=== PATIENT | female | born 1995 | race Hispanic/Latino ===

== ENCOUNTER 2021-01-17 04:25 | Inpatient (IN) | payer OTHER, SELFPAY ==
[2021-01-17] MEDS ORDERED: Propofol 1,000 MG/100 ML VIAL IV ONE (04:35)
[2021-01-17] MEDS ORDERED: Fentanyl 100 MCG/2 ML VIAL ONE (04:49)
[2021-01-17 04:54] LABS: Hemoglobin 11.3 g/dL (12.0-16.0); Mean Corpuscular Hemoglobin 30.2 pg (27.0-31.0); Mean Corpuscular Volume 88.9 fL (78.0-98.0); Mean Platelet Volume 8.6 fL (7.4-10.4); Platelet Count 219 thou/uL (130-400); RBC Distribution Width 12.7 % (11.5-14.5); Red Blood Cell (RBC) Count 3.75 mill/uL (4.20-5.40); White Blood Cell (WBC) Count 23.1 thou/uL (4.8-10.8)
[2021-01-17] MEDS ORDERED: Fentanyl CADD 100 ML IV SCH (05:00)
[2021-01-17 05:06] LABS: Band 1 % (5-11); Hypochromia SLIGHT = 6-15 cells (100X) (0-5/hpf); Lymphocytes 25 % (21-51); MDiff Complete? YES; Neutrophil 74 % (42-75); Platelet Morphology Comment Appears Adequate
[2021-01-17 05:09] LABS: ALT (SGPT) 11 U/L (8-55); AST (SGOT) 19 U/L (5-34); Albumin 3.7 g/dL (3.5-5.0); Alkaline Phosphatase 71 U/L (40-110); Anion Gap 14 mmol/L (10-20); BUN (Urea Nitrogen) 14 mg/dL (7.0-18.7); Bilirubin, Total 0.3 mg/dL (0.2-1.2); Calc. Creatinine Clearance 0 mL/min (70-130); Calcium 8.3 mg/dL (7.8-10.44); Carbon Dioxide 19 mmol/L (22-29); Chloride 107 mmol/L (98-107); Globulin 3.2 g/dL (2.4-3.5); Glucose 241 mg/dL (70-105); Potassium 3.9 mmol/L (3.5-5.1); Protein, Total 6.9 g/dL (6.0-8.3); Sodium 136 mmol/L (136-145)
[2021-01-17 05:12] LABS: Actual Bicarbonate (HCO3a) 19.1 mEq/L (22-28); Base Excess (BEa) -5.1 mEq/L (-2.0 to +3.0); CO2 Tension 32.4 mmHg (35.0-45.0); O2 Tension (PaO2), arterial 338.8 mmHg (80.0-100.0); pH, Arterial 7.39 (7.35-7.45)
[2021-01-17 05:13] LABS: Analyzer IN Cardio ER; Calcium, Ionized (arterial) 1.07 mmol/L (1.12-1.30); Carboxyhemoglobin (COHb) 0.1 gm% (0.0-3.0); Hemoglobin (Hb) 10.2 g/dL (12.0-16.0); Potassium - ABG Lab 3.28 mmol/L (3.70-5.30); Puncture Site RRA
[2021-01-17 05:15] LABS: Acetaminophen Less than 6.0 mcg/mL (10.0-30.0); Alcohol Less than 10 mg/dL (Less than 10); Salicylate Less than 8.0 mg/dL (15.0-30.0)
[2021-01-17 05:20] LABS: BHCG - Serum Negative (NEGATIVE); Pregs Control Background? CLEAR/WHITE (CLR/WHITE); Pregs Control Bar Appear? YES (CONTROL BAR)
[2021-01-17] MEDS ORDERED: Dextrose 50% Abboject 50 ML SYRINGE SLOW IVP PRN (05:20)
[2021-01-17] MEDS ORDERED: Insulin Regular 300 UNITS/3 ML VIAL SC PRN (05:20)
[2021-01-17] MEDS ORDERED: Ondansetron PF 4 MG/2 ML Vial IVP PRN (05:20)
[2021-01-17] MEDS ORDERED: Dextrose 5% in Water 1,000 ML IV PRN (05:20)
[2021-01-17] MEDS ORDERED: hydrALAZINE 20 MG/ML VIAL SLOW IVP PRN (05:20)
[2021-01-17] MEDS ORDERED: Calcium Chloride 1 GM/10 ML Abboject SYRINGE IVP SCH ×2 (05:30→17:45)
[2021-01-17] MEDS ORDERED: Midazolam HCl 5 mg/ml Vial ONE (05:32)
[2021-01-17 05:38] LABS: Bilirubin Negative (Negative); Blood, Urine Negative (Negative); Clarity Clear (Clear); Glucose, Urine (Dipstick) Greater than 1000 mg/dL (Negative); Ketone, Urine 10 mg/dL (Negative); Leukocyte Negative Leu/uL (Negative); Nitrite Negative (Negative); Pregnancy Test - Urine (BHCG) Negative (Negative); Pregu Control Background? CLEAR/WHITE (CLR/WHITE); Pregu Control Bar Appear? YES (CONTROL BAR); Protein, Urine (Dipstick) Negative (Neg-Trace); Urobilinogen Normal mg/dL (Less than 2); pH, Urine 5.5 (5.0-9.0)
[2021-01-17 05:47] LABS: Lactic Acid 2.9 mmol/L (0.5-2.2)
[2021-01-17 06:04] LABS: Hemoglobin A1c 4.9 % (4.0-6.0)
[2021-01-17 06:07] LABS: INR-International Normal Ratio 1.1; Prothrombin Time 14.2 sec (12.0-14.7)
[2021-01-17 06:08] LABS: PTT 29.2 sec (22.9-36.1)
[2021-01-17] MEDS: Sodium Chloride 0.9% 1,000 ML IV SCH ×4 (07:00→20:12)
[2021-01-17] MEDS: Pantoprazole 40 MG VIAL IVP SCH (08:28)
[2021-01-17] MEDS ORDERED: manNITOL 20% 500 ML ONE (09:01)
[2021-01-17] MEDS ORDERED: manNITOL 20% 500 ML IVPB SCH (09:15)
[2021-01-17] MEDS ORDERED: Lorazepam 2 MG/ML VIAL ONE (09:36)
[2021-01-17] MEDS: Sodium Chloride 3% 500 ML IVPB SCH (09:44)
[2021-01-17] MEDS ORDERED: levETIRAcetam in NS 1,000 MG in Premix Bag 1 BAG IVPB SCH (09:45)
[2021-01-17] MEDS ORDERED: Lorazepam 2 MG/ML VIAL SLOW IVP SCH (09:45)
[2021-01-17] MEDS ORDERED: Iopamidol-370 76% 500 ML 1 ML ONE (10:04)
[2021-01-17 11:27] LABS: #Lymphocytes 1.7 thou/uL (1.20-3.40); #Monocytes 1.2 thou/uL (0.11-0.59); #Neutrophils 17.6 thou/uL (1.40-6.50); %Basophils 0.1 % (0.0-1.0); %Eosinophils 0.1 % (0.0-10.0); %Lymphocytes 8.4 % (21.0-51.0); %Monocytes 5.7 % (0.0-10.0); %Neutrophils 85.7 % (42.0-75.0); Hemoglobin 9.7 g/dL (12.0-16.0); Mean Corpuscular HGB CONC 32.4 g/dL (32.0-36.0); Mean Corpuscular Hemoglobin 28.7 pg (27.0-31.0); Mean Corpuscular Volume 88.6 fL (78.0-98.0); Mean Platelet Volume 8.8 fL (7.4-10.4); Platelet Count 200 thou/uL (130-400); RBC Distribution Width 12.5 % (11.5-14.5); Red Blood Cell (RBC) Count 3.39 mill/uL (4.20-5.40); White Blood Cell (WBC) Count 20.5 thou/uL (4.8-10.8)
[2021-01-17 11:47] LABS: Anion Gap 9 mmol/L (10-20); BUN (Urea Nitrogen) 7 mg/dL (7.0-18.7); Calc. Creatinine Clearance 144 mL/min (70-130); Calcium 9.2 mg/dL (7.8-10.44); Carbon Dioxide 21 mmol/L (22-29); Chloride 107 mmol/L (98-107); Glucose 92 mg/dL (70-105); Potassium 3.8 mmol/L (3.5-5.1); Sodium 133 mmol/L (136-145)
[2021-01-17] MEDS: Propofol 1,000 MG/100 ML VIAL IV PRN ×2 (13:05→20:13)
[2021-01-17] MEDS ORDERED: Fentanyl CADD 100 ML ONE ×2 (13:18→23:23)
[2021-01-17 13:23] LABS: Anion Gap 10 mmol/L (10-20); BUN (Urea Nitrogen) 6 mg/dL (7.0-18.7); Calc. Creatinine Clearance 151 mL/min (70-130); Calcium 8.9 mg/dL (7.8-10.44); Carbon Dioxide 19 mmol/L (22-29); Chloride 110 mmol/L (98-107); Glucose 94 mg/dL (70-105); Potassium 3.7 mmol/L (3.5-5.1); Sodium 135 mmol/L (136-145)
[2021-01-17] MEDS: Fentanyl CADD 100 ML IV PRN ×2 (13:28→23:30)
[2021-01-17] MEDS: CEFAZOLIN IVPB SCH ×2 (13:34→22:05)
[2021-01-17] MEDS: D5W 1 GM IVPB SCH ×2 (13:34→22:05)
[2021-01-17 13:39] LABS: SARS-CoV-2 NAA Rapid Test DETECTED (NotDetected)
[2021-01-17] MEDS ORDERED: CEFAZOLIN 1 GM VIAL SLOW IVP SCH (14:00)
[2021-01-17 15:13] LABS: Sodium 136 mmol/L (136-145)
[2021-01-17] MEDS: Mannitol 12.5 GM/50 ML IV SCH ×2 (15:43→21:39)
[2021-01-17] MEDS ORDERED: Sodium Chloride 0.9% 1,000 ML IV SCH (15:45)
[2021-01-17 18:33] LABS: Sodium 140 mmol/L (136-145)
[2021-01-17] MEDS: levETIRAcetam in NS 500 MG in Premix Bag 1 BAG IVPB SCH (20:13)
[2021-01-17 20:34] LABS: Sodium 140 mmol/L (136-145)
[2021-01-18] MEDS: Sodium Chloride 3% 500 ML IVPB SCH (01:38)
[2021-01-18 02:13] LABS: Glucose 92 mg/dL (70-105); Sodium 142 mmol/L (136-145)
[2021-01-18] MEDS: Mannitol 12.5 GM/50 ML IV SCH ×3 (03:17→17:58)
[2021-01-18] MEDS ORDERED: Midazolam HCl 2 mg/2 ml Vial SLOW IVP PRN (03:18)
[2021-01-18] MEDS ORDERED: Midazolam HCl 2 mg/2 ml Vial IVP PRN (03:31)
[2021-01-18] MEDS: Propofol 1,000 MG/100 ML VIAL IV PRN ×4 (04:50→22:01)
[2021-01-18 05:24] LABS: #Eosinphils 0.2 thou/uL (0.0-0.7); #Lymphocytes 2.1 thou/uL (1.20-3.40); #Monocytes 0.6 thou/uL (0.11-0.59); #Neutrophils 8.6 thou/uL (1.40-6.50); %Basophils 0.3 % (0.0-1.0); %Eosinophils 1.8 % (0.0-10.0); %Lymphocytes 17.8 % (21.0-51.0); %Monocytes 5.6 % (0.0-10.0); %Neutrophils 74.6 % (42.0-75.0); Hemoglobin 7.3 g/dL (12.0-16.0); Mean Corpuscular HGB CONC 33.3 g/dL (32.0-36.0); Mean Corpuscular Hemoglobin 29.4 pg (27.0-31.0); Mean Corpuscular Volume 88.4 fL (78.0-98.0); Mean Platelet Volume 8.9 fL (7.4-10.4); Platelet Count 151 thou/uL (130-400); RBC Distribution Width 12.8 % (11.5-14.5); White Blood Cell (WBC) Count 11.6 thou/uL (4.8-10.8)
[2021-01-18 05:45] LABS: Anion Gap 8 mmol/L (10-20); BUN (Urea Nitrogen) 5 mg/dL (7.0-18.7); Calc. Creatinine Clearance 172 mL/min (70-130); Calcium 8.1 mg/dL (7.8-10.44); Carbon Dioxide 19 mmol/L (22-29); Chloride 116 mmol/L (98-107); Glucose 96 mg/dL (70-105); Magnesium 1.6 mg/dL (1.6-2.6); Phosphorus 2.6 mg/dL (2.3-4.7); Sodium 140 mmol/L (136-145)
[2021-01-18 05:50] LABS: INR-International Normal Ratio 1.4
[2021-01-18 05:51] LABS: PTT 42.4 sec (22.9-36.1)
[2021-01-18] MEDS: CEFAZOLIN IVPB SCH ×3 (07:08→22:00)
[2021-01-18] MEDS: D5W 1 GM IVPB SCH ×3 (07:08→22:00)
[2021-01-18] MEDS ORDERED: Potassium Phosphate 30 MMOL in Sodium Chloride 0.9% 250 ML 250 ML IVPB SCH (07:45)
[2021-01-18] MEDS ORDERED: Magnesium Sulfate 3 GM in Sodium Chloride 0.9% 100 ML IV SCH (07:45)
[2021-01-18] MEDS: levETIRAcetam in NS 500 MG in Premix Bag 1 BAG IVPB SCH ×2 (08:46→20:12)
[2021-01-18] MEDS: Pantoprazole 40 MG VIAL IVP SCH (08:47)
[2021-01-18 09:08] LABS: #Eosinphils 0.3 thou/uL (0.0-0.7); #Lymphocytes 2.1 thou/uL (1.20-3.40); #Monocytes 0.6 thou/uL (0.11-0.59); #Neutrophils 8.6 thou/uL (1.40-6.50); %Basophils 0.2 % (0.0-1.0); %Eosinophils 2.6 % (0.0-10.0); %Lymphocytes 17.9 % (21.0-51.0); %Monocytes 5.3 % (0.0-10.0); Hemoglobin 7.5 g/dL (12.0-16.0); Mean Corpuscular HGB CONC 33.7 g/dL (32.0-36.0); Mean Corpuscular Volume 88.9 fL (78.0-98.0); Mean Platelet Volume 9.6 fL (7.4-10.4); Platelet Count 150 thou/uL (130-400); RBC Distribution Width 12.6 % (11.5-14.5); Red Blood Cell (RBC) Count 2.49 mill/uL (4.20-5.40); White Blood Cell (WBC) Count 11.6 thou/uL (4.8-10.8)
[2021-01-18] MEDS ORDERED: Fentanyl CADD 100 ML ONE ×2 (09:10→18:14)
[2021-01-18] MEDS: Fentanyl CADD 100 ML IV PRN ×2 (09:14→18:21)
[2021-01-18 09:20] LABS: Sodium 144 mmol/L (136-145)
[2021-01-18] MEDS ORDERED: Iopamidol-370 76% 500 ML 1 ML ONE (10:19)
[2021-01-18] MEDS ORDERED: Norepinephrine 8 MG/0.9% NS 250 ML ONE (11:14)
[2021-01-18] MEDS: Sodium Chloride 0.9% 1,000 ML IV SCH ×2 (11:50→22:00)
[2021-01-18] MEDS ORDERED: Mannitol 12.5 GM/50 ML SLOW IVP SCH (12:00)
[2021-01-18] MEDS ORDERED: Lorazepam 2 MG/ML VIAL SLOW IVP SCH (12:00)
[2021-01-18] MEDS ORDERED: Lorazepam 2 MG/ML VIAL SLOW IVP PRN (13:12)
[2021-01-18] MEDS: Acetaminophen 325 MG/10.15 ML UDCUP PO SCH ×2 (13:30→20:11)
[2021-01-18] MEDS ORDERED: Potassium Phosphate 30 MMOL in Sodium Chloride 0.9% 500 ML IVPB SCH ×2 (14:15→14:30)
[2021-01-18] MEDS ORDERED: Midazolam HCl 2 mg/2 ml Vial SLOW IVP STA (14:52)
[2021-01-18 15:34] LABS: Sodium 144 mmol/L (136-145)
[2021-01-18] MEDS: Midazolam HCl 2 mg/2 ml Vial SLOW IVP PRN ×2 (16:11→20:11)
[2021-01-18 17:28] LABS: Actual Bicarbonate (HCO3a) 17.8 mEq/L (22-28); Base Excess (BEa) -5.8 mEq/L (-2.0 to +3.0); Calcium, Ionized (arterial) 1.07 mmol/L (1.12-1.30); Carboxyhemoglobin (COHb) 0.3 gm% (0.0-3.0); Hemoglobin (Hb) 7.7 g/dL (12.0-16.0); O2 Tension (PaO2), arterial 215.4 mmHg (80.0-100.0); Potassium - ABG Lab 3.02 mmol/L (3.70-5.30); pH, Arterial 7.42 (7.35-7.45)
[2021-01-18 17:30] LABS: Puncture Site Arterial Line
[2021-01-18] MEDS: Potassium Phosphate 30 MMOL in Sodium Chloride 0.9% 500 ML IVPB SCH ×2 (17:40→22:36)
[2021-01-18] MEDS ORDERED: Calcium Chloride 1 GM/10 ML Abboject SYRINGE IVP SCH (18:00)
[2021-01-18 20:04] LABS: Actual Bicarbonate (HCO3a) 17.7 mEq/L (22-28); Base Excess (BEa) -6.9 mEq/L (-2.0 to +3.0); CO2 Tension 31.5 mmHg (35.0-45.0); Calcium, Ionized (arterial) 1.41 mmol/L (1.12-1.30); Carboxyhemoglobin (COHb) 0.3 gm% (0.0-3.0); Hemoglobin (Hb) 7.7 g/dL (12.0-16.0); O2 Tension (PaO2), arterial 176.1 mmHg (80.0-100.0); Potassium - ABG Lab 3.45 mmol/L (3.70-5.30); pH, Arterial 7.37 (7.35-7.45)
[2021-01-18 20:08] LABS: ALV-art Gradient 69.725 mmHg (0-20); Puncture Site LINE
[2021-01-18 22:09] LABS: Actual Bicarbonate (HCO3a) 18.7 mEq/L (22-28); Base Excess (BEa) -5.5 mEq/L (-2.0 to +3.0); CO2 Tension 30.8 mmHg (35.0-45.0); Calcium, Ionized (arterial) 1.29 mmol/L (1.12-1.30); Carboxyhemoglobin (COHb) 0.3 gm% (0.0-3.0); Hemoglobin (Hb) 7.5 g/dL (12.0-16.0); O2 Tension (PaO2), arterial 191.7 mmHg (80.0-100.0); Potassium - ABG Lab 3.52 mmol/L (3.70-5.30)
[2021-01-18 22:13] LABS: Puncture Site LINE
[2021-01-19] MEDS: Acetaminophen 325 MG/10.15 ML UDCUP PO SCH ×4 (01:18→19:39)
[2021-01-19] MEDS: Mannitol 12.5 GM/50 ML IV SCH ×5 (01:18→22:42)
[2021-01-19 03:58] LABS: Actual Bicarbonate (HCO3a) 19.4 mEq/L (22-28); Base Excess (BEa) -5.5 mEq/L (-2.0 to +3.0); CO2 Tension 35.4 mmHg (35.0-45.0); Calcium, Ionized (arterial) 1.22 mmol/L (1.12-1.30); Hemoglobin (Hb) 7.5 g/dL (12.0-16.0); O2 Tension (PaO2), arterial 172.4 mmHg (80.0-100.0); Potassium - ABG Lab 3.39 mmol/L (3.70-5.30); pH, Arterial 7.36 (7.35-7.45)
[2021-01-19 03:59] LABS: Puncture Site LINE
[2021-01-19] MEDS: Propofol 1,000 MG/100 ML VIAL IV PRN ×3 (04:06→19:35)
[2021-01-19 04:21] LABS: #Eosinphils 0.6 thou/uL (0.0-0.7); #Lymphocytes 1.5 thou/uL (1.20-3.40); #Monocytes 0.7 thou/uL (0.11-0.59); #Neutrophils 7.8 thou/uL (1.40-6.50); %Basophils 0.2 % (0.0-1.0); %Eosinophils 5.4 % (0.0-10.0); %Lymphocytes 14.1 % (21.0-51.0); %Monocytes 6.6 % (0.0-10.0); %Neutrophils 73.7 % (42.0-75.0); Hemoglobin 7.3 g/dL (12.0-16.0); Mean Corpuscular HGB CONC 34.1 g/dL (32.0-36.0); Mean Corpuscular Hemoglobin 30.5 pg (27.0-31.0); Mean Corpuscular Volume 89.5 fL (78.0-98.0); Mean Platelet Volume 8.5 fL (7.4-10.4); Platelet Count 122 thou/uL (130-400); RBC Distribution Width 12.6 % (11.5-14.5); Red Blood Cell (RBC) Count 2.38 mill/uL (4.20-5.40); White Blood Cell (WBC) Count 10.6 thou/uL (4.8-10.8)
[2021-01-19] MEDS ORDERED: Fentanyl CADD 100 ML ONE ×3 (04:59→22:45)
[2021-01-19] MEDS: Fentanyl CADD 100 ML IV PRN ×3 (05:02→22:49)
[2021-01-19 05:10] LABS: Anion Gap 8 mmol/L (10-20); BUN (Urea Nitrogen) 4 mg/dL (7.0-18.7); Calc. Creatinine Clearance 171 mL/min (70-130); Calcium 8.2 mg/dL (7.8-10.44); Carbon Dioxide 20 mmol/L (22-29); Chloride 119 mmol/L (98-107); Glucose 97 mg/dL (70-105); Magnesium 1.7 mg/dL (1.6-2.6); Phosphorus 4.2 mg/dL (2.3-4.7); Potassium 3.4 mmol/L (3.5-5.1); Sodium 144 mmol/L (136-145)
[2021-01-19] MEDS: Midazolam HCl 2 mg/2 ml Vial SLOW IVP PRN ×4 (05:33→22:26)
[2021-01-19] MEDS: D5W 1 GM IVPB SCH ×3 (06:22→22:26)
[2021-01-19] MEDS: CEFAZOLIN IVPB SCH ×3 (06:22→22:26)
[2021-01-19] MEDS: levETIRAcetam in NS 500 MG in Premix Bag 1 BAG IVPB SCH ×2 (07:50→20:47)
[2021-01-19] MEDS: Pantoprazole 40 MG VIAL IVP SCH (07:50)
[2021-01-19] MEDS: Sodium Chloride 0.9% 1,000 ML IV SCH ×2 (07:50→16:36)
[2021-01-19] MEDS ORDERED: Potassium Phosphate 30 MMOL in Sodium Chloride 0.9% 500 ML IVPB SCH (09:15)
[2021-01-19] MEDS ORDERED: Magnesium Sulfate 3 GM in Sodium Chloride 0.9% 100 ML IV SCH (09:15)
[2021-01-20] MEDS: Propofol 1,000 MG/100 ML VIAL IV PRN ×7 (00:01→23:43)
[2021-01-20] MEDS: Acetaminophen 325 MG/10.15 ML UDCUP PO SCH ×4 (00:57→20:35)
[2021-01-20] MEDS: Morphine 2 MG/ML VIAL SLOW IVP PRN ×3 (00:57→08:57)
[2021-01-20] MEDS: Midazolam HCl 2 mg/2 ml Vial SLOW IVP PRN ×5 (01:16→11:44)
[2021-01-20 02:28] LABS: Sodium 145 mmol/L (136-145)
[2021-01-20] MEDS: Sodium Chloride 0.9% 1,000 ML IV SCH ×2 (04:33→12:48)
[2021-01-20 04:46] LABS: #Eosinphils 0.8 thou/uL (0.0-0.7); #Monocytes 0.5 thou/uL (0.11-0.59); #Neutrophils 10.1 thou/uL (1.40-6.50); %Basophils 0.2 % (0.0-1.0); %Eosinophils 6.1 % (0.0-10.0); %Lymphocytes 8.2 % (21.0-51.0); %Monocytes 3.9 % (0.0-10.0); %Neutrophils 81.6 % (42.0-75.0); Hemoglobin 9.3 g/dL (12.0-16.0); Mean Corpuscular HGB CONC 33.2 g/dL (32.0-36.0); Mean Corpuscular Hemoglobin 29.8 pg (27.0-31.0); Mean Corpuscular Volume 89.6 fL (78.0-98.0); Mean Platelet Volume 9.1 fL (7.4-10.4); Platelet Count 154 thou/uL (130-400); RBC Distribution Width 12.6 % (11.5-14.5); Red Blood Cell (RBC) Count 3.12 mill/uL (4.20-5.40); White Blood Cell (WBC) Count 12.4 thou/uL (4.8-10.8)
[2021-01-20 05:10] LABS: Anion Gap 8 mmol/L (10-20); BUN (Urea Nitrogen) Less than 4 mg/dL (7.0-18.7); Calc. Creatinine Clearance 185 mL/min (70-130); Calcium 7.7 mg/dL (7.8-10.44); Carbon Dioxide 20 mmol/L (22-29); Chloride 120 mmol/L (98-107); Glucose 88 mg/dL (70-105); Magnesium 1.9 mg/dL (1.6-2.6); Phosphorus 3.7 mg/dL (2.3-4.7); Potassium 3.5 mmol/L (3.5-5.1); Sodium 144 mmol/L (136-145)
[2021-01-20] MEDS: D5W 1 GM IVPB SCH ×3 (05:10→21:18)
[2021-01-20] MEDS: CEFAZOLIN IVPB SCH ×3 (05:10→21:18)
[2021-01-20] MEDS: Mannitol 12.5 GM/50 ML IV SCH ×3 (05:10→16:57)
[2021-01-20] MEDS ORDERED: Mannitol 12.5 GM/50 ML IV SCH ×4 (06:00→19:15)
[2021-01-20] MEDS ORDERED: Magnesium 2 GM/50 ML 2 GM in Premix Bag 1 BAG IVPB SCH (07:15)
[2021-01-20] MEDS ORDERED: Fentanyl CADD 100 ML ONE ×3 (07:26→16:33)
[2021-01-20] MEDS: Fentanyl CADD 100 ML IV PRN ×2 (07:28→16:45)
[2021-01-20 07:54] LABS: Actual Bicarbonate (HCO3a) 17.6 mEq/L (22-28); Base Excess (BEa) -7.9 mEq/L (-2.0 to +3.0); CO2 Tension 35.5 mmHg (35.0-45.0); Calcium, Ionized (arterial) 1.12 mmol/L (1.12-1.30); Carboxyhemoglobin (COHb) 0.2 gm% (0.0-3.0); Hemoglobin (Hb) 8.6 g/dL (12.0-16.0); O2 Tension (PaO2), arterial 98.2 mmHg (80.0-100.0); pH, Arterial 7.31 (7.35-7.45)
[2021-01-20 07:56] LABS: ALV-art Gradient 142.625 mmHg (0-20); Puncture Site Arterial Line
[2021-01-20] MEDS: Pantoprazole 40 MG VIAL IVP SCH (08:10)
[2021-01-20] MEDS: levETIRAcetam in NS 500 MG in Premix Bag 1 BAG IVPB SCH ×2 (08:10→20:01)
[2021-01-20] MEDS: Lorazepam 2 MG/ML VIAL SLOW IVP PRN ×4 (08:10→18:29)
[2021-01-20] MEDS ORDERED: Albumin 25% 0 ML ONE (10:16)
[2021-01-20] MEDS: Metoclopramide HCl 10 MG/2 ML VIAL IVP SCH ×2 (12:03→16:56)
[2021-01-20] MEDS ORDERED: Vecuronium 10 MG VIAL ONE (13:24)
[2021-01-20] MEDS: Vecuronium Bromide 50 MG in Sodium Chloride 0.9% 250 ML 250 ML IV SCH (19:59)
[2021-01-20] MEDS: Norepinephrine 8 MG/0.9% NS 250 ML IVPB SCH (20:00)
[2021-01-21] MEDS: Fentanyl CADD 100 ML IV PRN ×3 (00:02→15:53)
[2021-01-21] MEDS: Metoclopramide HCl 10 MG/2 ML VIAL IVP SCH ×4 (00:06→18:05)
[2021-01-21] MEDS: Sodium Chloride 0.9% 1,000 ML IV SCH ×2 (00:51→04:39)
[2021-01-21] MEDS: Acetaminophen 325 MG/10.15 ML UDCUP PO SCH ×4 (01:14→20:39)
[2021-01-21] MEDS: Propofol 1,000 MG/100 ML VIAL IV PRN ×7 (03:01→23:22)
[2021-01-21] MEDS: D5W 1 GM IVPB SCH ×3 (05:01→21:45)
[2021-01-21] MEDS: CEFAZOLIN IVPB SCH ×3 (05:01→21:45)
[2021-01-21] MEDS: Mannitol 12.5 GM/50 ML IV SCH (05:40)
[2021-01-21 07:33] LABS: Actual Bicarbonate (HCO3a) 21.5 mEq/L (22-28); Base Excess (BEa) -5.4 mEq/L (-2.0 to +3.0); CO2 Tension 48.7 mmHg (35.0-45.0); Calcium, Ionized (arterial) 1.19 mmol/L (1.12-1.30); Carboxyhemoglobin (COHb) 0.3 gm% (0.0-3.0); Hemoglobin (Hb) 10.2 g/dL (12.0-16.0); O2 Tension (PaO2), arterial 76.7 mmHg (80.0-100.0); Potassium - ABG Lab 2.71 mmol/L (3.70-5.30); pH, Arterial 7.26 (7.35-7.45)
[2021-01-21 07:38] LABS: ALV-art Gradient 147.625 mmHg (0-20); Puncture Site Arterial Line
[2021-01-21] MEDS: Vecuronium Bromide 50 MG in Sodium Chloride 0.9% 250 ML 250 ML IV SCH ×2 (07:45→20:38)
[2021-01-21] MEDS: Pantoprazole 40 MG VIAL IVP SCH (07:49)
[2021-01-21] MEDS: levETIRAcetam in NS 500 MG in Premix Bag 1 BAG IVPB SCH ×2 (07:49→20:38)
[2021-01-21 08:06] LABS: #Eosinphils 0.9 thou/uL (0.0-0.7); #Lymphocytes 0.7 thou/uL (1.20-3.40); #Monocytes 0.5 thou/uL (0.11-0.59); #Neutrophils 9.3 thou/uL (1.40-6.50); %Basophils 0.2 % (0.0-1.0); %Eosinophils 8.1 % (0.0-10.0); %Lymphocytes 5.9 % (21.0-51.0); %Monocytes 4.6 % (0.0-10.0); %Neutrophils 81.2 % (42.0-75.0); Hemoglobin 10.1 g/dL (12.0-16.0); Mean Corpuscular HGB CONC 34.2 g/dL (32.0-36.0); Mean Corpuscular Hemoglobin 30.7 pg (27.0-31.0); Mean Corpuscular Volume 89.8 fL (78.0-98.0); Mean Platelet Volume 8.8 fL (7.4-10.4); Platelet Count 184 thou/uL (130-400); RBC Distribution Width 12.8 % (11.5-14.5); Red Blood Cell (RBC) Count 3.28 mill/uL (4.20-5.40); White Blood Cell (WBC) Count 11.5 thou/uL (4.8-10.8)
[2021-01-21] MEDS ORDERED: Fentanyl CADD 100 ML ONE ×4 (08:12→23:57)
[2021-01-21 08:34] LABS: Anion Gap 12 mmol/L (10-20); BUN (Urea Nitrogen) Less than 4 mg/dL (7.0-18.7); Calc. Creatinine Clearance 152 mL/min (70-130); Calcium 8.1 mg/dL (7.8-10.44); Carbon Dioxide 21 mmol/L (22-29); Chloride 122 mmol/L (98-107); Glucose 100 mg/dL (70-105); Magnesium 1.8 mg/dL (1.6-2.6); Phosphorus 3.3 mg/dL (2.3-4.7); Sodium 152 mmol/L (136-145)
[2021-01-21 08:39] LABS: Potassium 2.8 mmol/L (3.5-5.1)
[2021-01-21] MEDS ORDERED: SODIUM CHLORIDE 0.9% IVPB SCH (08:45)
[2021-01-21] MEDS ORDERED: POTASSIUM CHLORIDE IVPB SCH (08:45)
[2021-01-21] MEDS ORDERED: MAGNESIUM SULFATE IVPB SCH (08:45)
[2021-01-21] MEDS ORDERED: Calcium Chloride 1 GM/10 ML Abboject SYRINGE IVP SCH (10:15)
[2021-01-21] MEDS ORDERED: Morphine 4 MG/ML VIAL SLOW IVP PRN (14:30)
[2021-01-21] MEDS: Norepinephrine 8 MG/0.9% NS 250 ML IVPB SCH (20:39)
[2021-01-22] MEDS: Fentanyl CADD 100 ML IV PRN ×3 (00:01→23:14)
[2021-01-22] MEDS: Metoclopramide HCl 10 MG/2 ML VIAL IVP SCH ×5 (00:09→23:12)
[2021-01-22] MEDS: Acetaminophen 325 MG/10.15 ML UDCUP PO SCH ×4 (00:10→18:17)
[2021-01-22] MEDS: Propofol 1,000 MG/100 ML VIAL IV PRN ×4 (01:41→23:12)
[2021-01-22 02:02] LABS: Actual Bicarbonate (HCO3a) 20.7 mEq/L (22-28); Base Excess (BEa) -5.2 mEq/L (-2.0 to +3.0); CO2 Tension 42.1 mmHg (35.0-45.0); Carboxyhemoglobin (COHb) 0.3 gm% (0.0-3.0); Hemoglobin (Hb) 10.8 g/dL (12.0-16.0); O2 Tension (PaO2), arterial 77.8 mmHg (80.0-100.0); Potassium - ABG Lab 2.67 mmol/L (3.70-5.30); pH, Arterial 7.31 (7.35-7.45)
[2021-01-22 02:19] LABS: Puncture Site LINE
[2021-01-22 02:20] LABS: ALV-art Gradient 297.375 mmHg (0-20)
[2021-01-22 02:37] LABS: #Eosinphils 1.6 thou/uL (0.0-0.7); #Lymphocytes 1.4 thou/uL (1.20-3.40); #Monocytes 0.4 thou/uL (0.11-0.59); #Neutrophils 9.5 thou/uL (1.40-6.50); %Basophils 0.3 % (0.0-1.0); %Eosinophils 12.1 % (0.0-10.0); %Lymphocytes 11.2 % (21.0-51.0); %Monocytes 2.8 % (0.0-10.0); %Neutrophils 73.6 % (42.0-75.0); Hemoglobin 10.7 g/dL (12.0-16.0); Mean Corpuscular HGB CONC 32.5 g/dL (32.0-36.0); Mean Corpuscular Hemoglobin 29.8 pg (27.0-31.0); Mean Corpuscular Volume 91.7 fL (78.0-98.0); Platelet Count 221 thou/uL (130-400); RBC Distribution Width 13.2 % (11.5-14.5); White Blood Cell (WBC) Count 12.8 thou/uL (4.8-10.8)
[2021-01-22 03:00] LABS: Anion Gap 11 mmol/L (10-20); BUN (Urea Nitrogen) Less than 4 mg/dL (7.0-18.7); Calc. Creatinine Clearance 120 mL/min (70-130); Calcium 8.7 mg/dL (7.8-10.44); Carbon Dioxide 23 mmol/L (22-29); Chloride 123 mmol/L (98-107); Glucose 110 mg/dL (70-105); Magnesium 1.7 mg/dL (1.6-2.6); Phosphorus 3.4 mg/dL (2.3-4.7); Sodium 154 mmol/L (136-145)
[2021-01-22 03:08] LABS: Potassium 2.9 mmol/L (3.5-5.1)
[2021-01-22] MEDS ORDERED: POTASSIUM PHOSPHATE IVPB SCH (03:15)
[2021-01-22] MEDS ORDERED: SODIUM CHLORIDE 0.9% IVPB SCH (03:15)
[2021-01-22] MEDS ORDERED: Magnesium 2 GM/50 ML 2 GM in Premix Bag 1 BAG IVPB SCH (03:30)
[2021-01-22] MEDS ORDERED: Potassium Chloride 40 MEQ in Premix Bag 1 BAG IVPB SCH (03:45)
[2021-01-22] MEDS ORDERED: Hydrocortisone Sod Succ/PF 100 mg/2 ml Vial IVP SCH (06:00)
[2021-01-22] MEDS ORDERED: Potassium Phosphate 30 MMOL in Sodium Chloride 0.9% 250 ML 250 ML IVPB SCH (06:00)
[2021-01-22] MEDS ORDERED: Calcium Chloride 13.6 MEQ in Sodium Chloride 0.9% 100 ML IVPB SCH (06:30)
[2021-01-22] MEDS: CEFAZOLIN IVPB SCH ×4 (06:34→21:12)
[2021-01-22] MEDS: D5W 1 GM IVPB SCH ×4 (06:34→21:12)
[2021-01-22] MEDS ORDERED: Fentanyl CADD 100 ML ONE ×2 (07:48→23:09)
[2021-01-22 08:00] LABS: Actual Bicarbonate (HCO3a) 18.2 mEq/L (22-28); CO2 Tension 39.6 mmHg (35.0-45.0); Calcium, Ionized (arterial) 1.35 mmol/L (1.12-1.30); Carboxyhemoglobin (COHb) 0.3 gm% (0.0-3.0); Hemoglobin (Hb) 12.3 g/dL (12.0-16.0); O2 Tension (PaO2), arterial 92.5 mmHg (80.0-100.0); Potassium - ABG Lab 3.47 mmol/L (3.70-5.30); pH, Arterial 7.28 (7.35-7.45)
[2021-01-22] MEDS: levETIRAcetam in NS 500 MG in Premix Bag 1 BAG IVPB SCH ×2 (08:02→20:28)
[2021-01-22] MEDS: Pantoprazole 40 MG VIAL IVP SCH (08:02)
[2021-01-22 08:03] LABS: Puncture Site Arterial Line
[2021-01-22] MEDS ORDERED: Dextrose 5% in Water 1,000 ML IV SCH (08:45)
[2021-01-22] MEDS: Vecuronium Bromide 50 MG in Sodium Chloride 0.9% 250 ML 250 ML IV SCH (09:12)
[2021-01-22] MEDS: Norepinephrine 8 MG/0.9% NS 250 ML IVPB SCH ×2 (09:13→22:53)
[2021-01-22 11:48] LABS: Actual Bicarbonate (HCO3a) 18.7 mEq/L (22-28); CO2 Tension 48.2 mmHg (35.0-45.0); Calcium, Ionized (arterial) 1.25 mmol/L (1.12-1.30); Carboxyhemoglobin (COHb) 0.3 gm% (0.0-3.0); Hemoglobin (Hb) 10.9 g/dL (12.0-16.0); O2 Tension (PaO2), arterial 104.7 mmHg (80.0-100.0); Potassium - ABG Lab 4.03 mmol/L (3.70-5.30)
[2021-01-22] MEDS: Hydrocortisone Sod Succ/PF 100 mg/2 ml Vial IVP SCH ×3 (11:48→23:12)
[2021-01-22 11:53] LABS: Puncture Site Arterial Line; pH, Arterial 7.21 (7.35-7.45)
[2021-01-22 13:16] LABS: Sodium 155 mmol/L (136-145)
[2021-01-22] MEDS: Mannitol 12.5 GM/50 ML IV SCH ×3 (13:57→23:41)
[2021-01-22] MEDS ORDERED: Albuterol 200 PUFF (6.7GM INHALER) INH PRN (14:45)
[2021-01-22] MEDS: Midazolam In 0.9 % NaCl/PF 100 ML IVPB SCH (17:22)
[2021-01-22 17:31] LABS: CO2 Tension 34.2 mmHg (35.0-45.0); Calcium, Ionized (arterial) 1.15 mmol/L (1.12-1.30); Carboxyhemoglobin (COHb) 0.3 gm% (0.0-3.0); O2 Tension (PaO2), arterial 137.1 mmHg (80.0-100.0); Potassium - ABG Lab 3.73 mmol/L (3.70-5.30); pH, Arterial 7.34 (7.35-7.45)
[2021-01-22 17:36] LABS: Puncture Site Arterial Line
[2021-01-22] MEDS: Albuterol 200 PUFF (6.7GM INHALER) INH SCH ×2 (18:12→23:30)
[2021-01-22 18:19] LABS: Sodium 150 mmol/L (136-145)
[2021-01-22] MEDS ORDERED: Sodium Chloride 0.9% 500 ML IV SCH (19:30)
[2021-01-22 21:12] LABS: Hemoglobin 10.5 g/dL (12.0-16.0); Mean Corpuscular HGB CONC 33.1 g/dL (32.0-36.0); Mean Corpuscular Hemoglobin 29.6 pg (27.0-31.0); Mean Corpuscular Volume 89.5 fL (78.0-98.0); Mean Platelet Volume 8.5 fL (7.4-10.4); Platelet Count 253 thou/uL (130-400); RBC Distribution Width 13.2 % (11.5-14.5); Red Blood Cell (RBC) Count 3.54 mill/uL (4.20-5.40); White Blood Cell (WBC) Count 16.9 thou/uL (4.8-10.8)
[2021-01-22 21:14] LABS: Sodium 153 mmol/L (136-145)
[2021-01-22 21:29] LABS: Band 40 % (5-11); Hypochromia SLIGHT = 6-15 cells (100X) (0-5/hpf); Lymphocytes 8 % (21-51); MDiff Complete? YES; Monocytes 5 % (0-10); Neutrophil 47 % (42-75); Platelet Morphology Comment Appears Adequate
[2021-01-22 21:30] LABS: Calcium 7.9 mg/dL (7.8-10.44); Chloride 122 mmol/L (98-107); Potassium 3.6 mmol/L (3.5-5.1); Sodium 153 mmol/L (136-145)
[2021-01-22 21:31] LABS: Glucose 143 mg/dL (70-105)
[2021-01-22 21:32] LABS: Anion Gap 12 mmol/L (10-20); Carbon Dioxide 23 mmol/L (22-29)
[2021-01-22 21:34] LABS: Calc. Creatinine Clearance 130 mL/min (70-130)
[2021-01-22 21:35] LABS: BUN (Urea Nitrogen) 7 mg/dL (7.0-18.7)
[2021-01-22 21:58] LABS: Phosphorus 6.5 mg/dL (2.3-4.7)
[2021-01-22] MEDS ORDERED: Potassium Chloride 20 MEQ in Premix Bag 1 BAG IVPB SCH (23:15)
[2021-01-23] MEDS: Acetaminophen 325 MG/10.15 ML UDCUP PO SCH (00:01)
[2021-01-23] MEDS: Vecuronium Bromide 50 MG in Sodium Chloride 0.9% 250 ML 250 ML IV SCH (03:29)
[2021-01-23] MEDS: Propofol 1,000 MG/100 ML VIAL IV PRN ×3 (03:46→21:11)
[2021-01-23 04:40] LABS: ALT (SGPT) 503 U/L (8-55); AST (SGOT) 560 U/L (5-34); Alkaline Phosphatase 119 U/L (40-110); Anion Gap 11 mmol/L (10-20); BUN (Urea Nitrogen) 11 mg/dL (7.0-18.7); Bilirubin, Total 0.8 mg/dL (0.2-1.2); Calc. Creatinine Clearance 134 mL/min (70-130); Calcium 7.4 mg/dL (7.8-10.44); Carbon Dioxide 23 mmol/L (22-29); Chloride 119 mmol/L (98-107); Globulin 2.4 g/dL (2.4-3.5); Glucose 145 mg/dL (70-105); Protein, Total 5.4 g/dL (6.0-8.3); Sodium 149 mmol/L (136-145)
[2021-01-23 04:44] LABS: Band 37 % (5-11); Hemoglobin 9.6 g/dL (12.0-16.0); Hypochromia SLIGHT = 6-15 cells (100X) (0-5/hpf); Lymphocytes 3 % (21-51); MDiff Complete? YES; Mean Corpuscular HGB CONC 32.9 g/dL (32.0-36.0); Mean Corpuscular Hemoglobin 29.7 pg (27.0-31.0); Mean Corpuscular Volume 90.3 fL (78.0-98.0); Mean Platelet Volume 8.7 fL (7.4-10.4); Monocytes 4 % (0-10); Neutrophil 56 % (42-75); Platelet Count 251 thou/uL (130-400); Platelet Morphology Comment Appears Adequate; RBC Distribution Width 13.2 % (11.5-14.5); Red Blood Cell (RBC) Count 3.24 mill/uL (4.20-5.40); White Blood Cell (WBC) Count 15.2 thou/uL (4.8-10.8)
[2021-01-23] MEDS: CEFAZOLIN IVPB SCH (05:57)
[2021-01-23] MEDS: D5W 1 GM IVPB SCH (05:57)
[2021-01-23] MEDS: Midazolam In 0.9 % NaCl/PF 100 ML IVPB SCH ×2 (05:57→18:39)
[2021-01-23] MEDS: Hydrocortisone Sod Succ/PF 100 mg/2 ml Vial IVP SCH ×3 (05:58→17:42)
[2021-01-23] MEDS: Metoclopramide HCl 10 MG/2 ML VIAL IVP SCH ×3 (05:58→17:42)
[2021-01-23] MEDS ORDERED: Acetaminophen 650 MG/20.3 ML UDCUP PO SCH (06:00)
[2021-01-23 07:25] LABS: Actual Bicarbonate (HCO3a) 20.5 mEq/L (22-28); Base Excess (BEa) -3.7 mEq/L (-2.0 to +3.0); CO2 Tension 33.9 mmHg (35.0-45.0); Calcium, Ionized (arterial) 1.04 mmol/L (1.12-1.30); Carboxyhemoglobin (COHb) 0.3 gm% (0.0-3.0); Hemoglobin (Hb) 10.1 g/dL (12.0-16.0); O2 Tension (PaO2), arterial 86.3 mmHg (80.0-100.0); Potassium - ABG Lab 3.55 mmol/L (3.70-5.30)
[2021-01-23] MEDS: levETIRAcetam in NS 500 MG in Premix Bag 1 BAG IVPB SCH ×2 (07:51→21:11)
[2021-01-23] MEDS: Pantoprazole 40 MG VIAL IVP SCH (07:52)
[2021-01-23] MEDS: Albuterol 200 PUFF (6.7GM INHALER) INH SCH ×3 (08:09→18:15)
[2021-01-23 08:11] LABS: ALV-art Gradient 227.825 mmHg (0-20); Puncture Site Arterial Line
[2021-01-23] MEDS: Mannitol 12.5 GM/50 ML IV SCH ×3 (09:33→19:23)
[2021-01-23] MEDS ORDERED: Calcium Chloride 1 GM/10 ML Abboject SYRINGE ONE (09:46)
[2021-01-23] MEDS: cefTRIAXone\\ROCEPHIN 2 GM in Sodium Chloride 0.9% 100 ML IVPB SCH (14:08)
[2021-01-23] MEDS: Lactated Ringer's 1,000 ML IV SCH (17:42)
[2021-01-23] MEDS ORDERED: Fentanyl CADD 100 ML ONE (18:37)
[2021-01-23] MEDS: Fentanyl CADD 100 ML IV PRN (18:39)
[2021-01-23 20:47] LABS: #Lymphocytes 1.4 thou/uL (1.20-3.40); #Monocytes 0.2 thou/uL (0.11-0.59); #Neutrophils 11.8 thou/uL (1.40-6.50); %Basophils 0.3 % (0.0-1.0); %Eosinophils 0.4 % (0.0-10.0); %Lymphocytes 10.6 % (21.0-51.0); %Monocytes 1.7 % (0.0-10.0); Hemoglobin 9.4 g/dL (12.0-16.0); Mean Corpuscular HGB CONC 33.3 g/dL (32.0-36.0); Mean Corpuscular Hemoglobin 29.5 pg (27.0-31.0); Mean Corpuscular Volume 88.6 fL (78.0-98.0); Mean Platelet Volume 8.9 fL (7.4-10.4); Platelet Count 276 thou/uL (130-400); White Blood Cell (WBC) Count 13.6 thou/uL (4.8-10.8)
[2021-01-23 21:35] LABS: BUN (Urea Nitrogen) 17 mg/dL (7.0-18.7); Calc. Creatinine Clearance 143 mL/min (70-130); Calcium 8.3 mg/dL (7.8-10.44); Carbon Dioxide 23 mmol/L (22-29); Glucose 154 mg/dL (70-105); Magnesium 2.1 mg/dL (1.6-2.6); Phosphorus 3.5 mg/dL (2.3-4.7)
[2021-01-23 21:44] LABS: Anion Gap 13 mmol/L (10-20); Chloride 121 mmol/L (98-107); Sodium 151 mmol/L (136-145)
[2021-01-23 21:53] LABS: Actual Bicarbonate (HCO3a) 23.6 mEq/L (22-28); Base Excess (BEa) -1.8 mEq/L (-2.0 to +3.0); CO2 Tension 43.1 mmHg (35.0-45.0); Hemoglobin (Hb) 9.7 g/dL (12.0-16.0); O2 Tension (PaO2), arterial 89.3 mmHg (80.0-100.0); pH, Arterial 7.36 (7.35-7.45)
[2021-01-23 21:54] LABS: ALV-art Gradient 284.625 mmHg (0-20); Calcium, Ionized (arterial) 1.22 mmol/L (1.12-1.30); Carboxyhemoglobin (COHb) 0.3 gm% (0.0-3.0); Potassium - ABG Lab 4.07 mmol/L (3.70-5.30); Puncture Site LINE
[2021-01-23] MEDS ORDERED: Lactated Ringer's 500 ML IV SCH (22:15)
[2021-01-23] MEDS ORDERED: Albumin 5% 500 ML ONE (23:24)
[2021-01-24] MEDS: Hydrocortisone Sod Succ/PF 100 mg/2 ml Vial IVP SCH ×5 (00:48→23:31)
[2021-01-24] MEDS: Metoclopramide HCl 10 MG/2 ML VIAL IVP SCH ×5 (00:49→23:33)
[2021-01-24] MEDS: Mannitol 12.5 GM/50 ML IV SCH ×3 (00:49→08:17)
[2021-01-24] MEDS: Albuterol 200 PUFF (6.7GM INHALER) INH SCH ×5 (03:05→23:28)
[2021-01-24 04:42] LABS: ALT (SGPT) 435 U/L (8-55); AST (SGOT) 257 U/L (5-34); Albumin 3.3 g/dL (3.5-5.0); Alkaline Phosphatase 107 U/L (40-110); Anion Gap 10 mmol/L (10-20); BUN (Urea Nitrogen) 22 mg/dL (7.0-18.7); Bilirubin, Total 0.6 mg/dL (0.2-1.2); Calc. Creatinine Clearance 137 mL/min (70-130); Calcium 8.4 mg/dL (7.8-10.44); Carbon Dioxide 23 mmol/L (22-29); Chloride 120 mmol/L (98-107); Globulin 2.4 g/dL (2.4-3.5); Glucose 124 mg/dL (70-105); Magnesium 2.3 mg/dL (1.6-2.6); Phosphorus 2.3 mg/dL (2.3-4.7); Potassium 4.1 mmol/L (3.5-5.1); Protein, Total 5.7 g/dL (6.0-8.3); Sodium 149 mmol/L (136-145)
[2021-01-24 04:59] LABS: Hemoglobin 10.1 g/dL (12.0-16.0); Mean Corpuscular HGB CONC 33.4 g/dL (32.0-36.0); Mean Corpuscular Hemoglobin 29.4 pg (27.0-31.0); Platelet Count 229 thou/uL (130-400); RBC Distribution Width 13.1 % (11.5-14.5); Red Blood Cell (RBC) Count 3.45 mill/uL (4.20-5.40); White Blood Cell (WBC) Count 10.5 thou/uL (4.8-10.8)
[2021-01-24 05:37] LABS: Band 16 % (5-11); Eosinophils 1 % (0-10); Lymphocytes 6 % (21-51); MDiff Complete? YES; Metamyelocyte 1 % (0-0); Monocytes 6 % (0-10); Myelocyte 1 % (0-0); Neutrophil 69 % (42-75); Nucleated RBC 1 % (0)
[2021-01-24 07:21] LABS: Base Excess (BEa) -1.8 mEq/L (-2.0 to +3.0); CO2 Tension 28.5 mmHg (35.0-45.0); Calcium, Ionized (arterial) 1.17 mmol/L (1.12-1.30); Carboxyhemoglobin (COHb) 0.7 gm% (0.0-3.0); Hemoglobin (Hb) 8.4 g/dL (12.0-16.0); O2 Tension (PaO2), arterial 93.3 mmHg (80.0-100.0); Potassium - ABG Lab 3.66 mmol/L (3.70-5.30); pH, Arterial 7.49 (7.35-7.45)
[2021-01-24] MEDS ORDERED: Fentanyl CADD 0 ML ONE (07:24)
[2021-01-24] MEDS: Propofol 1,000 MG/100 ML VIAL IV PRN ×4 (07:30→20:26)
[2021-01-24] MEDS: Midazolam In 0.9 % NaCl/PF 100 ML IVPB SCH ×2 (07:46→20:26)
[2021-01-24 08:12] LABS: Puncture Site Arterial Line
[2021-01-24 08:13] LABS: ALV-art Gradient 227.575 mmHg (0-20)
[2021-01-24] MEDS ORDERED: Saccharomyces boulardii 250 MG CAP PO SCH (09:00)
[2021-01-24] MEDS ORDERED: Polyethylene Glycol 3350 17 GM Packet PER TUBE SCH (09:00)
[2021-01-24] MEDS ORDERED: Senokot 8.6 MG TAB PER TUBE SCH (09:00)
[2021-01-24] MEDS ORDERED: Mannitol 12.5 GM/50 ML IV SCH (09:45)
[2021-01-24] MEDS: Pantoprazole 40 MG VIAL IVP SCH (09:46)
[2021-01-24] MEDS: levETIRAcetam in NS 500 MG in Premix Bag 1 BAG IVPB SCH ×2 (09:46→20:25)
[2021-01-24] MEDS: Floranex 1 GM Packet PER TUBE SCH (09:46)
[2021-01-24] MEDS ORDERED: Calcium Chloride 1 GM/10 ML Abboject SYRINGE ONE (09:57)
[2021-01-24] MEDS ORDERED: Calcium Chloride 1 GM/10 ML Abboject SYRINGE IVP SCH (10:00)
[2021-01-24] MEDS: Lactated Ringer's 1,000 ML IV SCH (10:00)
[2021-01-24] MEDS ORDERED: Fentanyl CADD 100 ML ONE (11:57)
[2021-01-24] MEDS: Fentanyl CADD 100 ML IV PRN (12:00)
[2021-01-24 12:05] LABS: Actual Bicarbonate (HCO3a) 22.6 mEq/L (22-28); Base Excess (BEa) -2.1 mEq/L (-2.0 to +3.0); CO2 Tension 37.8 mmHg (35.0-45.0); Calcium, Ionized (arterial) 1.28 mmol/L (1.12-1.30); Carboxyhemoglobin (COHb) 0.5 gm% (0.0-3.0); Hemoglobin (Hb) 8.2 g/dL (12.0-16.0); O2 Tension (PaO2), arterial 122.2 mmHg (80.0-100.0); Potassium - ABG Lab 3.73 mmol/L (3.70-5.30); pH, Arterial 7.39 (7.35-7.45)
[2021-01-24 12:06] LABS: Puncture Site Arterial Line
[2021-01-24] MEDS: Norepinephrine 8 MG/0.9% NS 250 ML IVPB SCH (12:32)
[2021-01-24] MEDS: cefTRIAXone\\ROCEPHIN 2 GM in Sodium Chloride 0.9% 100 ML IVPB SCH (12:34)
[2021-01-24 20:59] LABS: Band 25 % (5-11); Eosinophils 1 % (0-10); Hemoglobin 8.3 g/dL (12.0-16.0); Lymphocytes 13 % (21-51); MDiff Complete? YES; Mean Corpuscular HGB CONC 33.6 g/dL (32.0-36.0); Mean Corpuscular Hemoglobin 30.3 pg (27.0-31.0); Mean Corpuscular Volume 90.1 fL (78.0-98.0); Mean Platelet Volume 8.5 fL (7.4-10.4); Monocytes 6 % (0-10); Myelocyte 1 % (0-0); Neutrophil 54 % (42-75); Platelet Count 216 thou/uL (130-400); RBC Distribution Width 13.3 % (11.5-14.5); Red Blood Cell (RBC) Count 2.73 mill/uL (4.20-5.40); White Blood Cell (WBC) Count 8.2 thou/uL (4.8-10.8)
[2021-01-24 21:06] LABS: Anion Gap 8 mmol/L (10-20); BUN (Urea Nitrogen) 26 mg/dL (7.0-18.7); Calc. Creatinine Clearance 171 mL/min (70-130); Calcium 8.1 mg/dL (7.8-10.44); Carbon Dioxide 24 mmol/L (22-29); Chloride 121 mmol/L (98-107); Glucose 125 mg/dL (70-105); Magnesium 2.2 mg/dL (1.6-2.6); Phosphorus 3.2 mg/dL (2.3-4.7); Potassium 4.2 mmol/L (3.5-5.1); Sodium 149 mmol/L (136-145)
[2021-01-25] MEDS: Propofol 1,000 MG/100 ML VIAL IV PRN ×6 (03:42→23:55)
[2021-01-25 05:29] LABS: Hemoglobin 7.7 g/dL (12.0-16.0); Mean Corpuscular HGB CONC 32.5 g/dL (32.0-36.0); Mean Corpuscular Hemoglobin 29.1 pg (27.0-31.0); Mean Corpuscular Volume 89.6 fL (78.0-98.0); Mean Platelet Volume 8.7 fL (7.4-10.4); Platelet Count 206 thou/uL (130-400); RBC Distribution Width 13.2 % (11.5-14.5); Red Blood Cell (RBC) Count 2.64 mill/uL (4.20-5.40); White Blood Cell (WBC) Count 7.1 thou/uL (4.8-10.8)
[2021-01-25 05:39] LABS: ALT (SGPT) 261 U/L (8-55); AST (SGOT) 97 U/L (5-34); Alkaline Phosphatase 108 U/L (40-110); Anion Gap 10 mmol/L (10-20); BUN (Urea Nitrogen) 27 mg/dL (7.0-18.7); Bilirubin, Total 0.6 mg/dL (0.2-1.2); Calc. Creatinine Clearance 180 mL/min (70-130); Carbon Dioxide 25 mmol/L (22-29); Chloride 118 mmol/L (98-107); Globulin 2.3 g/dL (2.4-3.5); Glucose 124 mg/dL (70-105); Magnesium 2.3 mg/dL (1.6-2.6); Phosphorus 2.9 mg/dL (2.3-4.7); Potassium 3.9 mmol/L (3.5-5.1); Protein, Total 5.3 g/dL (6.0-8.3); Sodium 149 mmol/L (136-145)
[2021-01-25] MEDS ORDERED: Fentanyl CADD 100 ML ONE ×2 (06:28→23:51)
[2021-01-25] MEDS: Fentanyl CADD 100 ML IV PRN ×2 (06:36→23:55)
[2021-01-25] MEDS: Hydrocortisone Sod Succ/PF 100 mg/2 ml Vial IVP SCH ×4 (06:37→23:52)
[2021-01-25] MEDS: Metoclopramide HCl 10 MG/2 ML VIAL IVP SCH ×4 (06:37→23:52)
[2021-01-25] MEDS: Acetaminophen 650 MG/20.3 ML UDCUP PO PRN ×2 (06:41→19:33)
[2021-01-25 06:54] LABS: Band 23 % (5-11); Eosinophils 2 % (0-10); Lymphocytes 14 % (21-51); MDiff Complete? YES; Monocytes 2 % (0-10); Neutrophil 59 % (42-75)
[2021-01-25 06:58] LABS: Actual Bicarbonate (HCO3a) 23.7 mEq/L (22-28); Base Excess (BEa) -0.5 mEq/L (-2.0 to +3.0); CO2 Tension 36.3 mmHg (35.0-45.0); Calcium, Ionized (arterial) 1.12 mmol/L (1.12-1.30); Carboxyhemoglobin (COHb) 0.8 gm% (0.0-3.0); Hemoglobin (Hb) 7.7 g/dL (12.0-16.0); O2 Tension (PaO2), arterial 87.4 mmHg (80.0-100.0); Potassium - ABG Lab 3.41 mmol/L (3.70-5.30); pH, Arterial 7.43 (7.35-7.45)
[2021-01-25 07:04] LABS: Puncture Site Arterial Line
[2021-01-25 07:05] LABS: ALV-art Gradient 152.425 mmHg (0-20)
[2021-01-25] MEDS: Albuterol 200 PUFF (6.7GM INHALER) INH SCH ×4 (07:37→23:50)
[2021-01-25] MEDS: levETIRAcetam in NS 500 MG in Premix Bag 1 BAG IVPB SCH ×2 (07:37→20:58)
[2021-01-25] MEDS: Pantoprazole 40 MG VIAL IVP SCH (07:38)
[2021-01-25] MEDS: Floranex 1 GM Packet PER TUBE SCH (07:38)
[2021-01-25] MEDS: Midazolam In 0.9 % NaCl/PF 100 ML IVPB SCH ×2 (08:58→21:01)
[2021-01-25 09:59] LABS: Actual Bicarbonate (HCO3a) 24.8 mEq/L (22-28); Base Excess (BEa) 0.2 mEq/L (-2.0 to +3.0); CO2 Tension 39.9 mmHg (35.0-45.0); Carboxyhemoglobin (COHb) 0.5 gm% (0.0-3.0); Hemoglobin (Hb) 8.1 g/dL (12.0-16.0); O2 Tension (PaO2), arterial 102.2 mmHg (80.0-100.0); Potassium - ABG Lab 3.62 mmol/L (3.70-5.30); pH, Arterial 7.41 (7.35-7.45)
[2021-01-25] MEDS ORDERED: Calcium Chloride 1 GM/10 ML Abboject SYRINGE IVP SCH (10:00)
[2021-01-25 10:04] LABS: ALV-art Gradient 204.425 mmHg (0-20); Puncture Site Arterial Line
[2021-01-25 10:06] LABS: INR-International Normal Ratio 1.1; PTT 40.5 sec (22.9-36.1); Prothrombin Time 14.6 sec (12.0-14.7)
[2021-01-25] MEDS ORDERED: Furosemide 20 MG/2 ML VIAL SLOW IVP SCH (10:15)
[2021-01-25] MEDS ORDERED: Dexamethasone 4 mg/ml Vial SLOW IVP SCH (12:00)
[2021-01-25] MEDS: cefTRIAXone\\ROCEPHIN 2 GM in Sodium Chloride 0.9% 100 ML IVPB SCH (13:35)
[2021-01-25 20:44] LABS: Actual Bicarbonate (HCO3a) 22.8 mEq/L (22-28); Base Excess (BEa) -0.2 mEq/L (-2.0 to +3.0); CO2 Tension 31.3 mmHg (35.0-45.0); Calcium, Ionized (arterial) 1.13 mmol/L (1.12-1.30); Carboxyhemoglobin (COHb) 0.4 gm% (0.0-3.0); Hemoglobin (Hb) 9.4 g/dL (12.0-16.0); O2 Tension (PaO2), arterial 70.8 mmHg (80.0-100.0); Potassium - ABG Lab 2.37 mmol/L (3.70-5.30); pH, Arterial 7.48 (7.35-7.45)
[2021-01-25 20:46] LABS: ALV-art Gradient 460.475 mmHg (0-20); Puncture Site LINE
[2021-01-25] MEDS ORDERED: Mannitol 12.5 GM/50 ML SLOW IVP SCH (23:31)
[2021-01-26] MEDS: Hydrocortisone Sod Succ/PF 100 mg/2 ml Vial IVP SCH ×3 (05:26→16:57)
[2021-01-26] MEDS: Metoclopramide HCl 10 MG/2 ML VIAL IVP SCH ×3 (05:26→16:57)
[2021-01-26] MEDS: Lactated Ringer's 1,000 ML IV SCH (05:31)
[2021-01-26] MEDS: Propofol 1,000 MG/100 ML VIAL IV PRN ×4 (05:49→19:39)
[2021-01-26 07:02] LABS: Albumin 2.7 g/dL (3.5-5.0)
[2021-01-26 07:03] LABS: Chloride 114 mmol/L (98-107); Sodium 148 mmol/L (136-145)
[2021-01-26 07:04] LABS: Calcium 7.7 mg/dL (7.8-10.44); Glucose 169 mg/dL (70-105)
[2021-01-26 07:05] LABS: Globulin 2.5 g/dL (2.4-3.5); Protein, Total 5.2 g/dL (6.0-8.3)
[2021-01-26 07:06] LABS: Anion Gap 7 mmol/L (10-20); Bilirubin, Total 0.9 mg/dL (0.2-1.2); Carbon Dioxide 29 mmol/L (22-29)
[2021-01-26 07:07] LABS: Alkaline Phosphatase 217 U/L (40-110)
[2021-01-26 07:08] LABS: Calc. Creatinine Clearance 172 mL/min (70-130)
[2021-01-26 07:09] LABS: AST (SGOT) 39 U/L (5-34); BUN (Urea Nitrogen) 23 mg/dL (7.0-18.7)
[2021-01-26 07:10] LABS: ALT (SGPT) 144 U/L (8-55); Magnesium 2.2 mg/dL (1.6-2.6)
[2021-01-26] MEDS: Albuterol 200 PUFF (6.7GM INHALER) INH SCH ×4 (07:20→22:33)
[2021-01-26 07:21] LABS: Phosphorus 1.9 mg/dL (2.3-4.7)
[2021-01-26 07:28] LABS: Band 35 % (5-11); Lymphocytes 5 % (21-51); MDiff Complete? YES; Mean Corpuscular HGB CONC 33.5 g/dL (32.0-36.0); Mean Corpuscular Volume 89.7 fL (78.0-98.0); Metamyelocyte 2 % (0-0); Neutrophil 58 % (42-75); Platelet Count 97 thou/uL (130-400); Platelet Morphology Comment Appears Decreased; Red Blood Cell (RBC) Count 2.99 mill/uL (4.20-5.40); Vacuoles SLIGHT; White Blood Cell (WBC) Count 28.2 thou/uL (4.8-10.8)
[2021-01-26 07:36] LABS: Actual Bicarbonate (HCO3a) 25.5 mEq/L (22-28); Base Excess (BEa) 0.8 mEq/L (-2.0 to +3.0); CO2 Tension 40.7 mmHg (35.0-45.0); Calcium, Ionized (arterial) 1.17 mmol/L (1.12-1.30); Carboxyhemoglobin (COHb) 0.9 gm% (0.0-3.0); Hemoglobin (Hb) 11.6 g/dL (12.0-16.0); O2 Tension (PaO2), arterial 123.8 mmHg (80.0-100.0); Potassium - ABG Lab 1.96 mmol/L (3.70-5.30); pH, Arterial 7.41 (7.35-7.45)
[2021-01-26 07:39] LABS: Puncture Site Arterial Line
[2021-01-26 07:40] LABS: ALV-art Gradient 538.325 mmHg (0-20)
[2021-01-26] MEDS ORDERED: Potassium Phosphate 30 MMOL in Sodium Chloride 0.9% 250 ML 250 ML IVPB SCH (09:00)
[2021-01-26] MEDS: levETIRAcetam in NS 500 MG in Premix Bag 1 BAG IVPB SCH ×2 (09:19→21:16)
[2021-01-26] MEDS: Pantoprazole 40 MG VIAL IVP SCH (09:20)
[2021-01-26] MEDS: Floranex 1 GM Packet PER TUBE SCH (09:20)
[2021-01-26] MEDS: cefTRIAXone\\ROCEPHIN 2 GM in Sodium Chloride 0.9% 100 ML IVPB SCH (12:32)
[2021-01-26] MEDS: Norepinephrine 8 MG/0.9% NS 250 ML IVPB SCH (13:07)
[2021-01-26] MEDS: Midazolam In 0.9 % NaCl/PF 100 ML IVPB SCH (13:24)
[2021-01-26] MEDS: Acetaminophen 650 MG/20.3 ML UDCUP PO PRN (13:56)
[2021-01-26 15:20] LABS: Hemoglobin 9.4 g/dL (12.0-16.0); Mean Corpuscular HGB CONC 34.2 g/dL (32.0-36.0); Mean Corpuscular Hemoglobin 30.5 pg (27.0-31.0); Mean Corpuscular Volume 89.4 fL (78.0-98.0); Mean Platelet Volume 9.5 fL (7.4-10.4); Platelet Count 85 thou/uL (130-400); RBC Distribution Width 13.1 % (11.5-14.5); Red Blood Cell (RBC) Count 3.09 mill/uL (4.20-5.40)
[2021-01-26 15:40] LABS: Band 49 % (5-11); Lymphocytes 2 % (21-51); MDiff Complete? YES; Metamyelocyte 1 % (0-0); Neutrophil 48 % (42-75); Platelet Morphology Comment Appears Decreased; Polychromasia SLIGHT = 2-3 cells (100X) (0-2/hpf)
[2021-01-26 16:02] LABS: BUN (Urea Nitrogen) 25 mg/dL (7.0-18.7); Calc. Creatinine Clearance 190 mL/min (70-130); Calcium 7.5 mg/dL (7.8-10.44); Carbon Dioxide 27 mmol/L (22-29); Chloride 114 mmol/L (98-107); Glucose 140 mg/dL (70-105); Magnesium 2.2 mg/dL (1.6-2.6); Phosphorus 2.7 mg/dL (2.3-4.7); Potassium 2.3 mmol/L (3.5-5.1); Sodium 150 mmol/L (136-145)
[2021-01-26] MEDS ORDERED: Potassium Chloride 40 MEQ in Premix Bag 1 BAG IVPB SCH ×2 (16:30→20:30)
[2021-01-26] MEDS: Vancomycin HCl 1.5 GM in Sodium Chloride 0.9% 250 ML 300 ML IVPB SCH (16:46)
[2021-01-26] MEDS ORDERED: Fentanyl CADD 100 ML ONE (19:34)
[2021-01-26] MEDS: Fentanyl CADD 100 ML IV PRN (19:38)
[2021-01-26] MEDS ORDERED: Vancomycin HCl 1.75 GM in Sodium Chloride 0.9% 500 ML IVPB SCH (21:00)
[2021-01-27] MEDS: Acetaminophen 650 MG/20.3 ML UDCUP PO PRN (00:42)
[2021-01-27] MEDS: Hydrocortisone Sod Succ/PF 100 mg/2 ml Vial IVP SCH ×3 (00:43→15:04)
[2021-01-27] MEDS: Metoclopramide HCl 10 MG/2 ML VIAL IVP SCH ×4 (00:43→17:36)
[2021-01-27] MEDS: Vancomycin HCl 1.5 GM in Sodium Chloride 0.9% 250 ML 300 ML IVPB SCH ×3 (00:44→17:31)
[2021-01-27 01:52] LABS: Band 22 % (5-11); Hemoglobin 9.4 g/dL (12.0-16.0); Lymphocytes 3 % (21-51); MDiff Complete? YES; Mean Corpuscular HGB CONC 32.7 g/dL (32.0-36.0); Mean Corpuscular Hemoglobin 29.3 pg (27.0-31.0); Mean Corpuscular Volume 89.8 fL (78.0-98.0); Neutrophil 75 % (42-75); Platelet Count 51 thou/uL (130-400); Platelet Morphology Comment Appears Decreased; RBC Distribution Width 13.1 % (11.5-14.5); Red Blood Cell (RBC) Count 3.19 mill/uL (4.20-5.40); White Blood Cell (WBC) Count 12.9 thou/uL (4.8-10.8)
[2021-01-27 02:14] LABS: Anion Gap 14 mmol/L (10-20); BUN (Urea Nitrogen) 24 mg/dL (7.0-18.7); Calc. Creatinine Clearance 187 mL/min (70-130); Calcium 7.2 mg/dL (7.8-10.44); Carbon Dioxide 26 mmol/L (22-29); Chloride 115 mmol/L (98-107); Glucose 165 mg/dL (70-105); Magnesium 2.5 mg/dL (1.6-2.6); Phosphorus 2.5 mg/dL (2.3-4.7); Potassium 4.1 mmol/L (3.5-5.1); Sodium 151 mmol/L (136-145)
[2021-01-27] MEDS: Midazolam In 0.9 % NaCl/PF 100 ML IVPB SCH (02:15)
[2021-01-27] MEDS: Propofol 1,000 MG/100 ML VIAL IV PRN ×5 (05:52→20:47)
[2021-01-27 08:28] LABS: Actual Bicarbonate (HCO3a) 23.7 mEq/L (22-28); Base Excess (BEa) 1.2 mEq/L (-2.0 to +3.0); CO2 Tension 29.4 mmHg (35.0-45.0); Calcium, Ionized (arterial) 1.04 mmol/L (1.12-1.30); Carboxyhemoglobin (COHb) 0.1 gm% (0.0-3.0); Hemoglobin (Hb) 8.3 g/dL (12.0-16.0); O2 Tension (PaO2), arterial 92.1 mmHg (80.0-100.0); Potassium - ABG Lab 3.44 mmol/L (3.70-5.30); pH, Arterial 7.52 (7.35-7.45)
[2021-01-27] MEDS: Albuterol 200 PUFF (6.7GM INHALER) INH SCH ×4 (08:36→23:34)
[2021-01-27 08:39] LABS: Puncture Site Arterial Line
[2021-01-27] MEDS ORDERED: Furosemide 20 MG/2 ML VIAL SLOW IVP SCH (09:00)
[2021-01-27] MEDS: levETIRAcetam in NS 500 MG in Premix Bag 1 BAG IVPB SCH ×2 (09:00→20:28)
[2021-01-27] MEDS: Floranex 1 GM Packet PER TUBE SCH (09:01)
[2021-01-27] MEDS: Pantoprazole 40 MG VIAL IVP SCH (09:01)
[2021-01-27 12:21] LABS: Actual Bicarbonate (HCO3a) 26.5 mEq/L (22-28); Base Excess (BEa) 3.6 mEq/L (-2.0 to +3.0); CO2 Tension 32.8 mmHg (35.0-45.0); Calcium, Ionized (arterial) 1.04 mmol/L (1.12-1.30); Carboxyhemoglobin (COHb) 0.7 gm% (0.0-3.0); Potassium - ABG Lab 3.62 mmol/L (3.70-5.30); pH, Arterial 7.53 (7.35-7.45)
[2021-01-27 13:02] LABS: Puncture Site Arterial Line
[2021-01-27] MEDS: cefTRIAXone\\ROCEPHIN 2 GM in Sodium Chloride 0.9% 100 ML IVPB SCH (13:43)
[2021-01-27] MEDS ORDERED: Calcium Chloride 1 GM/10 ML Abboject SYRINGE IVP SCH (14:00)
[2021-01-27] MEDS ORDERED: Fentanyl CADD 100 ML ONE (15:28)
[2021-01-27] MEDS: Fentanyl CADD 100 ML IV PRN (15:30)
[2021-01-27 16:39] LABS: Vancomycin, Trough 26.1 ug/mL
[2021-01-27] MEDS: Dexamethasone 4 mg/ml Vial SLOW IVP SCH (17:36)
[2021-01-27 20:39] LABS: Anion Gap 11 mmol/L (10-20); BUN (Urea Nitrogen) 32 mg/dL (7.0-18.7); Calc. Creatinine Clearance 190 mL/min (70-130); Calcium 7.7 mg/dL (7.8-10.44); Carbon Dioxide 27 mmol/L (22-29); Chloride 115 mmol/L (98-107); Glucose 125 mg/dL (70-105); Magnesium 2.5 mg/dL (1.6-2.6); Phosphorus 1.8 mg/dL (2.3-4.7); Potassium 3.6 mmol/L (3.5-5.1); Sodium 149 mmol/L (136-145)
[2021-01-27] MEDS: Lactated Ringer's 1,000 ML IV SCH (20:46)
[2021-01-27 20:59] LABS: Hemoglobin 7.7 g/dL (12.0-16.0); Mean Corpuscular HGB CONC 32.3 g/dL (32.0-36.0); Mean Corpuscular Hemoglobin 29.2 pg (27.0-31.0); Mean Corpuscular Volume 90.4 fL (78.0-98.0); Mean Platelet Volume 11.4 fL (7.4-10.4); Platelet Count 58 thou/uL (130-400); RBC Distribution Width 13.5 % (11.5-14.5); Red Blood Cell (RBC) Count 2.63 mill/uL (4.20-5.40); White Blood Cell (WBC) Count 27.5 thou/uL (4.8-10.8)
[2021-01-27] MEDS ORDERED: Potassium Phosphate 30 MMOL in Sodium Chloride 0.9% 250 ML 250 ML IVPB SCH (21:00)
[2021-01-27 21:18] LABS: Band 12 % (5-11); Eosinophils 1 % (0-10); Lymphocytes 2 % (21-51); MDiff Complete? YES; Monocytes 1 % (0-10); Neutrophil 84 % (42-75); Platelet Morphology Comment Appears Decreased
[2021-01-28] MEDS: Vancomycin 1 GM in Premix Bag 1 BAG IVPB SCH ×3 (00:26→15:52)
[2021-01-28] MEDS: Dexamethasone 4 mg/ml Vial SLOW IVP SCH ×4 (00:26→17:36)
[2021-01-28] MEDS: Metoclopramide HCl 10 MG/2 ML VIAL IVP SCH ×4 (00:26→17:36)
[2021-01-28 04:46] LABS: Prothrombin Time 13.3 sec (12.0-14.7)
[2021-01-28 04:59] LABS: Band 11 % (5-11); Hemoglobin 7.6 g/dL (12.0-16.0); Lymphocytes 2 % (21-51); MDiff Complete? YES; Mean Corpuscular HGB CONC 31.8 g/dL (32.0-36.0); Mean Corpuscular Hemoglobin 29.1 pg (27.0-31.0); Mean Corpuscular Volume 91.7 fL (78.0-98.0); Mean Platelet Volume 11.2 fL (7.4-10.4); Myelocyte 1 % (0-0); Neutrophil 86 % (42-75); Platelet Count 69 thou/uL (130-400); RBC Distribution Width 13.7 % (11.5-14.5); Red Blood Cell (RBC) Count 2.59 mill/uL (4.20-5.40); White Blood Cell (WBC) Count 22.7 thou/uL (4.8-10.8)
[2021-01-28] MEDS: Propofol 1,000 MG/100 ML VIAL IV PRN ×3 (06:22→22:13)
[2021-01-28 06:54] LABS: ALT (SGPT) 82 U/L (8-55); AST (SGOT) 48 U/L (5-34); Albumin 2.5 g/dL (3.5-5.0); Alkaline Phosphatase 225 U/L (40-110); Anion Gap 11 mmol/L (10-20); BUN (Urea Nitrogen) 29 mg/dL (7.0-18.7); Bilirubin, Direct 0.4 mg/dL (0.1-0.3); Bilirubin, Total 0.5 mg/dL (0.2-1.2); Calc. Creatinine Clearance 216 mL/min (70-130); Calcium 7.6 mg/dL (7.8-10.44); Carbon Dioxide 25 mmol/L (22-29); Chloride 115 mmol/L (98-107); Glucose 165 mg/dL (70-105); Magnesium 2.3 mg/dL (1.6-2.6); Phosphorus 3.4 mg/dL (2.3-4.7); Potassium 4.7 mmol/L (3.5-5.1); Protein, Total 5.2 g/dL (6.0-8.3); Sodium 146 mmol/L (136-145)
[2021-01-28] MEDS: Albuterol 200 PUFF (6.7GM INHALER) INH SCH ×3 (06:59→19:19)
[2021-01-28 07:02] LABS: Actual Bicarbonate (HCO3a) 25.2 mEq/L (22-28); Base Excess (BEa) 0.9 mEq/L (-2.0 to +3.0); CO2 Tension 38.5 mmHg (35.0-45.0); Calcium, Ionized (arterial) 1.13 mmol/L (1.12-1.30); Carboxyhemoglobin (COHb) 0.3 gm% (0.0-3.0); O2 Tension (PaO2), arterial 128.8 mmHg (80.0-100.0); pH, Arterial 7.43 (7.35-7.45)
[2021-01-28 07:03] LABS: Puncture Site RRA
[2021-01-28 07:04] LABS: ALV-art Gradient 215.225 mmHg (0-20)
[2021-01-28] MEDS: levETIRAcetam in NS 500 MG in Premix Bag 1 BAG IVPB SCH ×2 (07:33→20:56)
[2021-01-28] MEDS: Pantoprazole 40 MG VIAL IVP SCH (07:34)
[2021-01-28] MEDS: Floranex 1 GM Packet PER TUBE SCH (07:34)
[2021-01-28] MEDS ORDERED: Lidocaine 1% w/Epinephrine 1:100K 20 ML VIAL ONE (09:54)
[2021-01-28] MEDS ORDERED: Vecuronium 10 MG VIAL ONE (09:54)
[2021-01-28] MEDS ORDERED: Fentanyl CADD 100 ML ONE (10:13)
[2021-01-28] MEDS: Fentanyl CADD 100 ML IV PRN (10:15)
[2021-01-28] MEDS: cefTRIAXone\\ROCEPHIN 2 GM in Sodium Chloride 0.9% 100 ML IVPB SCH (13:41)
[2021-01-28 14:16] LABS: Actual Bicarbonate (HCO3a) 21.9 mEq/L (22-28); CO2 Tension 33.5 mmHg (35.0-45.0); Calcium, Ionized (arterial) 1.13 mmol/L (1.12-1.30); Carboxyhemoglobin (COHb) 0.8 gm% (0.0-3.0); Hemoglobin (Hb) 8.1 g/dL (12.0-16.0); O2 Tension (PaO2), arterial 72.5 mmHg (80.0-100.0); Potassium - ABG Lab 4.38 mmol/L (3.70-5.30); Puncture Site Arterial Line; pH, Arterial 7.43 (7.35-7.45)
[2021-01-28 14:21] LABS: ALV-art Gradient 242.125 mmHg (0-20)
[2021-01-28 18:00] LABS: Vancomycin, Trough 42.2 ug/mL
[2021-01-29] MEDS ORDERED: Fentanyl CADD 100 ML ONE (00:51)
[2021-01-29] MEDS: Fentanyl CADD 100 ML IV PRN (00:56)
[2021-01-29] MEDS: Metoclopramide HCl 10 MG/2 ML VIAL IVP SCH ×5 (01:25→23:32)
[2021-01-29] MEDS: Dexamethasone 4 mg/ml Vial SLOW IVP SCH ×5 (01:43→23:32)
[2021-01-29] MEDS: Albuterol 200 PUFF (6.7GM INHALER) INH SCH ×4 (02:13→18:53)
[2021-01-29 03:09] LABS: Vancomycin, Trough 5.8 ug/mL
[2021-01-29] MEDS: Vancomycin HCl 1.5 GM in Sodium Chloride 0.9% 250 ML 300 ML IVPB SCH ×3 (03:40→20:58)
[2021-01-29] MEDS: Propofol 1,000 MG/100 ML VIAL IV PRN ×2 (04:14→12:22)
[2021-01-29 04:33] LABS: Anion Gap 12 mmol/L (10-20); BUN (Urea Nitrogen) 27 mg/dL (7.0-18.7); Calc. Creatinine Clearance 224 mL/min (70-130); Calcium 7.6 mg/dL (7.8-10.44); Carbon Dioxide 21 mmol/L (22-29); Chloride 115 mmol/L (98-107); Glucose 131 mg/dL (70-105); Magnesium 2.3 mg/dL (1.6-2.6); Phosphorus 3.2 mg/dL (2.3-4.7); Potassium 4.3 mmol/L (3.5-5.1); Sodium 144 mmol/L (136-145)
[2021-01-29 04:59] LABS: Hemoglobin 7.4 g/dL (12.0-16.0); Mean Corpuscular HGB CONC 33.8 g/dL (32.0-36.0); Mean Corpuscular Hemoglobin 30.1 pg (27.0-31.0); Mean Corpuscular Volume 88.8 fL (78.0-98.0); Mean Platelet Volume 11.7 fL (7.4-10.4); Platelet Count 120 thou/uL (130-400); RBC Distribution Width 13.3 % (11.5-14.5); Red Blood Cell (RBC) Count 2.45 mill/uL (4.20-5.40); White Blood Cell (WBC) Count 11.9 thou/uL (4.8-10.8)
[2021-01-29 05:12] LABS: Band 17 % (5-11); Lymphocytes 20 % (21-51); MDiff Complete? YES; Monocytes 1 % (0-10); Neutrophil 62 % (42-75)
[2021-01-29] MEDS: Lactated Ringer's 1,000 ML IV SCH (05:24)
[2021-01-29] MEDS: Vancomycin 1 GM in Premix Bag 1 BAG IVPB SCH (07:52)
[2021-01-29] MEDS: levETIRAcetam in NS 500 MG in Premix Bag 1 BAG IVPB SCH ×2 (07:59→21:00)
[2021-01-29] MEDS: Floranex 1 GM Packet PER TUBE SCH (08:00)
[2021-01-29] MEDS: Pantoprazole 40 MG VIAL IVP SCH (08:00)
[2021-01-29] MEDS ORDERED: Furosemide 20 MG/2 ML VIAL SLOW IVP SCH ×2 (10:00→21:00)
[2021-01-29 11:59] LABS: Actual Bicarbonate (HCO3a) 22.5 mEq/L (22-28); Base Excess (BEa) -1.1 mEq/L (-2.0 to +3.0); CO2 Tension 32.7 mmHg (35.0-45.0); Calcium, Ionized (arterial) 1.12 mmol/L (1.12-1.30); Carboxyhemoglobin (COHb) 0.5 gm% (0.0-3.0); Hemoglobin (Hb) 8.5 g/dL (12.0-16.0); O2 Tension (PaO2), arterial 73.3 mmHg (80.0-100.0); Potassium - ABG Lab 4.18 mmol/L (3.70-5.30); pH, Arterial 7.46 (7.35-7.45)
[2021-01-29 12:00] LABS: Puncture Site LRA
[2021-01-29 12:01] LABS: ALV-art Gradient 242.325 mmHg (0-20)
[2021-01-29] MEDS: cefTRIAXone\\ROCEPHIN 2 GM in Sodium Chloride 0.9% 100 ML IVPB SCH (13:52)
[2021-01-29] MEDS ORDERED: Metolazone 2.5 MG TAB PO SCH (14:00)
[2021-01-30] MEDS: Acetaminophen 650 MG/20.3 ML UDCUP PO PRN (00:10)
[2021-01-30] MEDS ORDERED: Fentanyl CADD 100 ML ONE (00:32)
[2021-01-30] MEDS: Fentanyl CADD 100 ML IV PRN (00:36)
[2021-01-30] MEDS: Propofol 1,000 MG/100 ML VIAL IV PRN (00:36)
[2021-01-30] MEDS: Albuterol 200 PUFF (6.7GM INHALER) INH SCH ×4 (02:38→18:40)
[2021-01-30] MEDS: Vancomycin HCl 1.5 GM in Sodium Chloride 0.9% 250 ML 300 ML IVPB SCH ×3 (03:38→20:08)
[2021-01-30 05:10] LABS: Mean Corpuscular HGB CONC 32.3 g/dL (32.0-36.0); Mean Corpuscular Hemoglobin 28.8 pg (27.0-31.0); Mean Corpuscular Volume 88.9 fL (78.0-98.0); Mean Platelet Volume 10.7 fL (7.4-10.4); Platelet Count 194 thou/uL (130-400); RBC Distribution Width 13.1 % (11.5-14.5); Red Blood Cell (RBC) Count 3.11 mill/uL (4.20-5.40); White Blood Cell (WBC) Count 19.7 thou/uL (4.8-10.8)
[2021-01-30 05:19] LABS: Anion Gap 12 mmol/L (10-20); BUN (Urea Nitrogen) 26 mg/dL (7.0-18.7); Calc. Creatinine Clearance 211 mL/min (70-130); Calcium 7.7 mg/dL (7.8-10.44); Carbon Dioxide 25 mmol/L (22-29); Chloride 104 mmol/L (98-107); Glucose 140 mg/dL (70-105); Magnesium 1.8 mg/dL (1.6-2.6); Phosphorus 3.1 mg/dL (2.3-4.7); Potassium 3.5 mmol/L (3.5-5.1); Sodium 137 mmol/L (136-145)
[2021-01-30 05:42] LABS: Band 12 % (5-11); Lymphocytes 15 % (21-51); MDiff Complete? YES; Monocytes 2 % (0-10); Neutrophil 71 % (42-75)
[2021-01-30] MEDS: Dexamethasone 4 mg/ml Vial SLOW IVP SCH ×4 (06:21→23:50)
[2021-01-30] MEDS: Metoclopramide HCl 10 MG/2 ML VIAL IVP SCH ×4 (06:21→23:50)
[2021-01-30] MEDS: Lactated Ringer's 1,000 ML IV SCH (06:40)
[2021-01-30 07:11] LABS: Vancomycin, Trough 15.8 ug/mL
[2021-01-30] MEDS ORDERED: Magnesium Sulfate 4 GM in Sodium Chloride 0.9% 250 ML 250 ML IVPB SCH (08:00)
[2021-01-30] MEDS: Metolazone 2.5 MG TAB PO SCH (08:53)
[2021-01-30] MEDS: Floranex 1 GM Packet PER TUBE SCH (08:53)
[2021-01-30] MEDS: Pantoprazole 40 MG VIAL IVP SCH (08:53)
[2021-01-30] MEDS: levETIRAcetam in NS 500 MG in Premix Bag 1 BAG IVPB SCH ×2 (08:53→20:08)
[2021-01-30] MEDS: Scopolamine 1.5 mg/72 hour Patch TD SCH (12:23)
[2021-01-30] MEDS: cefTRIAXone\\ROCEPHIN 2 GM in Sodium Chloride 0.9% 100 ML IVPB SCH (12:26)
[2021-01-31] MEDS: Lactated Ringer's 1,000 ML IV SCH (02:03)
[2021-01-31] MEDS: Albuterol 200 PUFF (6.7GM INHALER) INH SCH ×5 (02:13→23:48)
[2021-01-31 04:52] LABS: Vancomycin, Trough 13.2 ug/mL
[2021-01-31] MEDS: Vancomycin HCl 1.5 GM in Sodium Chloride 0.9% 250 ML 300 ML IVPB SCH (04:57)
[2021-01-31] MEDS: Dexamethasone 4 mg/ml Vial SLOW IVP SCH (06:34)
[2021-01-31] MEDS: Metoclopramide HCl 10 MG/2 ML VIAL IVP SCH (06:34)
[2021-01-31 07:22] LABS: Anion Gap 15 mmol/L (10-20); BUN (Urea Nitrogen) 15 mg/dL (7.0-18.7); Calc. Creatinine Clearance 215 mL/min (70-130); Calcium 8.3 mg/dL (7.8-10.44); Carbon Dioxide 26 mmol/L (22-29); Chloride 102 mmol/L (98-107); Glucose 142 mg/dL (70-105); Potassium 3.5 mmol/L (3.5-5.1); Sodium 139 mmol/L (136-145)
[2021-01-31 08:49] LABS: Magnesium 1.9 mg/dL (1.6-2.6)
[2021-01-31] MEDS: Floranex 1 GM Packet PER TUBE SCH (09:58)
[2021-01-31] MEDS: Pantoprazole 40 MG VIAL IVP SCH (09:58)
[2021-01-31] MEDS: levETIRAcetam in NS 500 MG in Premix Bag 1 BAG IVPB SCH ×2 (09:58→20:02)
[2021-01-31] MEDS: Metolazone 2.5 MG TAB PO SCH (09:58)
[2021-01-31] MEDS: Acetaminophen 650 MG/20.3 ML UDCUP PO SCH ×3 (10:03→20:01)
[2021-01-31] MEDS: Amantadine HCl 100 mg Capsule PO SCH (10:22)
[2021-01-31 11:08] LABS: Hemoglobin 9.2 g/dL (12.0-16.0); Mean Corpuscular HGB CONC 32.3 g/dL (32.0-36.0); Mean Corpuscular Hemoglobin 28.3 pg (27.0-31.0); Mean Corpuscular Volume 87.6 fL (78.0-98.0); Mean Platelet Volume 9.8 fL (7.4-10.4); Platelet Count 340 thou/uL (130-400); RBC Distribution Width 12.6 % (11.5-14.5); Red Blood Cell (RBC) Count 3.24 mill/uL (4.20-5.40); White Blood Cell (WBC) Count 26.7 thou/uL (4.8-10.8)
[2021-01-31 11:20] LABS: Magnesium 1.8 mg/dL (1.6-2.6); Phosphorus 3.4 mg/dL (2.3-4.7)
[2021-01-31 11:44] LABS: Band 6 % (5-11); Lymphocytes 7 % (21-51); MDiff Complete? YES; Monocytes 3 % (0-10); Myelocyte 2 % (0-0); Neutrophil 81 % (42-75); Platelet Morphology Comment Appears Adequate; Polychromasia SLIGHT = 2-3 cells (100X) (0-2/hpf); Reactive Lymphocytes 1 % (0-10)
[2021-01-31] MEDS ORDERED: Magnesium Sulfate 3 GM in Sodium Chloride 0.9% 100 ML IVPB SCH (11:45)
[2021-01-31] MEDS ORDERED: Potassium Chloride 40 MEQ in Premix Bag 1 BAG IVPB SCH (11:45)
[2021-01-31] MEDS: cefTRIAXone\\ROCEPHIN 2 GM in Sodium Chloride 0.9% 100 ML IVPB SCH (13:28)
[2021-01-31] MEDS: Potassium Chloride 20 MEQ in Premix Bag 1 BAG IVPB SCH ×2 (13:29→17:02)
[2021-01-31] MEDS ORDERED: MEROPENEM 1 GM/50 ML 1 GM in Premix Bag 1 BAG IVPB SCH (20:00)
[2021-01-31] MEDS ORDERED: Meropenem 1 GM in Sodium Chloride 0.9% 100 ML IVPB SCH (22:00)
[2021-02-01] MEDS: Acetaminophen 650 MG/20.3 ML UDCUP PO SCH ×4 (03:15→20:42)
[2021-02-01] MEDS: MEROPENEM 1 GM/50 ML 1 GM in Premix Bag 1 BAG IVPB SCH ×2 (03:44→12:00)
[2021-02-01 04:59] LABS: Anion Gap 13 mmol/L (10-20); BUN (Urea Nitrogen) 14 mg/dL (7.0-18.7); Calc. Creatinine Clearance 224 mL/min (70-130); Calcium 8.4 mg/dL (7.8-10.44); Carbon Dioxide 27 mmol/L (22-29); Chloride 99 mmol/L (98-107); Glucose 103 mg/dL (70-105); Magnesium 1.8 mg/dL (1.6-2.6); Phosphorus 3.3 mg/dL (2.3-4.7); Potassium 3.8 mmol/L (3.5-5.1); Sodium 135 mmol/L (136-145)
[2021-02-01 05:01] LABS: Band 13 % (5-11); Eosinophils 3 % (0-10); Hemoglobin 10.2 g/dL (12.0-16.0); Lymphocytes 12 % (21-51); MDiff Complete? YES; Mean Corpuscular HGB CONC 34.4 g/dL (32.0-36.0); Mean Corpuscular Hemoglobin 30.1 pg (27.0-31.0); Mean Corpuscular Volume 87.4 fL (78.0-98.0); Mean Platelet Volume 9.5 fL (7.4-10.4); Monocytes 5 % (0-10); Neutrophil 67 % (42-75); Platelet Count 442 thou/uL (130-400); Platelet Morphology Comment Appears Increased; White Blood Cell (WBC) Count 23.4 thou/uL (4.8-10.8)
[2021-02-01 07:31] LABS: Actual Bicarbonate (HCO3a) 25.4 mEq/L (22-28); Base Excess (BEa) 2.8 mEq/L (-2.0 to +3.0); CO2 Tension 32.4 mmHg (35.0-45.0); Hemoglobin (Hb) 10.9 g/dL (12.0-16.0); O2 Tension (PaO2), arterial 97.4 mmHg (80.0-100.0); Potassium - ABG Lab 3.31 mmol/L (3.70-5.30); pH, Arterial 7.51 (7.35-7.45)
[2021-02-01] MEDS ORDERED: Magnesium 2 GM/50 ML 2 GM in Premix Bag 1 BAG IVPB SCH (07:45)
[2021-02-01] MEDS: Albuterol 200 PUFF (6.7GM INHALER) INH SCH ×4 (07:54→23:47)
[2021-02-01 08:00] LABS: Puncture Site RRA
[2021-02-01] MEDS: Floranex 1 GM Packet PER TUBE SCH (09:41)
[2021-02-01] MEDS: Pantoprazole 40 MG VIAL IVP SCH (09:41)
[2021-02-01] MEDS: levETIRAcetam in NS 500 MG in Premix Bag 1 BAG IVPB SCH ×2 (09:41→20:43)
[2021-02-01] MEDS: Amantadine HCl 100 mg Capsule PO SCH (09:46)
[2021-02-01] MEDS ORDERED: Calcium Chloride 1 GM/10 ML Abboject SYRINGE IVP SCH (11:30)
[2021-02-01] MEDS: cefTRIAXone\\ROCEPHIN 2 GM in Sodium Chloride 0.9% 100 ML IVPB SCH (20:41)
[2021-02-02] MEDS: Acetaminophen 650 MG/20.3 ML UDCUP PO SCH ×4 (03:32→20:33)
[2021-02-02 04:45] LABS: Anion Gap 12 mmol/L (10-20); BUN (Urea Nitrogen) 12 mg/dL (7.0-18.7); Calc. Creatinine Clearance 237 mL/min (70-130); Calcium 8.3 mg/dL (7.8-10.44); Carbon Dioxide 25 mmol/L (22-29); Chloride 104 mmol/L (98-107); Glucose 113 mg/dL (70-105); Phosphorus 3.3 mg/dL (2.3-4.7); Potassium 3.8 mmol/L (3.5-5.1); Sodium 137 mmol/L (136-145)
[2021-02-02 04:47] LABS: Band 4 % (5-11); Eosinophils 2 % (0-10); Hemoglobin 9.5 g/dL (12.0-16.0); Lymphocytes 11 % (21-51); MDiff Complete? YES; Mean Corpuscular HGB CONC 32.6 g/dL (32.0-36.0); Mean Corpuscular Hemoglobin 29.1 pg (27.0-31.0); Mean Corpuscular Volume 89.2 fL (78.0-98.0); Mean Platelet Volume 8.6 fL (7.4-10.4); Monocytes 3 % (0-10); Neutrophil 79 % (42-75); Nucleated RBC 1 % (0); Platelet Count 562 thou/uL (130-400); Platelet Morphology Comment Appears Increased; RBC Distribution Width 13.2 % (11.5-14.5); RBC Morphology Normal; Reactive Lymphocytes 1 % (0-10); Red Blood Cell (RBC) Count 3.27 mill/uL (4.20-5.40); White Blood Cell (WBC) Count 19.4 thou/uL (4.8-10.8)
[2021-02-02] MEDS: Albuterol 200 PUFF (6.7GM INHALER) INH SCH ×3 (06:50→21:40)
[2021-02-02] MEDS: Scopolamine 1.5 mg/72 hour Patch TD SCH (09:09)
[2021-02-02] MEDS: Floranex 1 GM Packet PER TUBE SCH (09:10)
[2021-02-02] MEDS: Amantadine HCl 100 mg Capsule PO SCH (09:10)
[2021-02-02] MEDS: Pantoprazole 40 MG VIAL IVP SCH (09:11)
[2021-02-02] MEDS: levETIRAcetam in NS 500 MG in Premix Bag 1 BAG IVPB SCH ×2 (09:36→20:34)
[2021-02-02] MEDS: cefTRIAXone\\ROCEPHIN 2 GM in Sodium Chloride 0.9% 100 ML IVPB SCH (20:33)
[2021-02-03] MEDS: Albuterol 200 PUFF (6.7GM INHALER) INH SCH ×4 (00:11→19:13)
[2021-02-03] MEDS: Acetaminophen 650 MG/20.3 ML UDCUP PO SCH ×4 (03:15→19:59)
[2021-02-03 09:05] LABS: Anion Gap 14 mmol/L (10-20); BUN (Urea Nitrogen) 14 mg/dL (7.0-18.7); Calc. Creatinine Clearance 202 mL/min (70-130); Calcium 8.4 mg/dL (7.8-10.44); Carbon Dioxide 23 mmol/L (22-29); Chloride 107 mmol/L (98-107); Glucose 111 mg/dL (70-105); Magnesium 2.2 mg/dL (1.6-2.6); Phosphorus 3.2 mg/dL (2.3-4.7); Potassium 3.9 mmol/L (3.5-5.1); Sodium 140 mmol/L (136-145)
[2021-02-03] MEDS: Floranex 1 GM Packet PER TUBE SCH (09:17)
[2021-02-03] MEDS: Amantadine HCl 100 mg Capsule PO SCH (09:17)
[2021-02-03] MEDS: levETIRAcetam in NS 500 MG in Premix Bag 1 BAG IVPB SCH ×2 (09:17→20:00)
[2021-02-03] MEDS: Pantoprazole 40 MG VIAL IVP SCH (09:31)
[2021-02-03 12:42] LABS: Hemoglobin 10.6 g/dL (12.0-16.0); Mean Corpuscular HGB CONC 32.4 g/dL (32.0-36.0); Mean Corpuscular Hemoglobin 29.6 pg (27.0-31.0); Mean Corpuscular Volume 91.4 fL (78.0-98.0); Mean Platelet Volume 8.5 fL (7.4-10.4); Platelet Count 723 thou/uL (130-400); RBC Distribution Width 13.5 % (11.5-14.5); Red Blood Cell (RBC) Count 3.58 mill/uL (4.20-5.40); White Blood Cell (WBC) Count 20.8 thou/uL (4.8-10.8)
[2021-02-03 13:14] LABS: Band 14 % (5-11); Lymphocytes 6 % (21-51); MDiff Complete? YES; Metamyelocyte 1 % (0-0); Monocytes 6 % (0-10); Neutrophil 72 % (42-75); Platelet Morphology Comment Appears Increased; Polychromasia SLIGHT = 2-3 cells (100X) (0-2/hpf)
[2021-02-04] MEDS: Albuterol 200 PUFF (6.7GM INHALER) INH SCH ×4 (01:46→18:11)
[2021-02-04] MEDS: Acetaminophen 650 MG/20.3 ML UDCUP PO SCH ×4 (02:14→20:16)
[2021-02-04 05:06] LABS: Anion Gap 12 mmol/L (10-20); BUN (Urea Nitrogen) 12 mg/dL (7.0-18.7); Calc. Creatinine Clearance 210 mL/min (70-130); Calcium 8.5 mg/dL (7.8-10.44); Carbon Dioxide 24 mmol/L (22-29); Chloride 105 mmol/L (98-107); Glucose 100 mg/dL (70-105); Magnesium 2.2 mg/dL (1.6-2.6); Phosphorus 3.4 mg/dL (2.3-4.7); Potassium 4.1 mmol/L (3.5-5.1); Sodium 137 mmol/L (136-145)
[2021-02-04 05:15] LABS: Band 2 % (5-11); Hemoglobin 10.4 g/dL (12.0-16.0); Lymphocytes 16 % (21-51); MDiff Complete? YES; Mean Corpuscular HGB CONC 33.3 g/dL (32.0-36.0); Mean Corpuscular Hemoglobin 29.8 pg (27.0-31.0); Mean Corpuscular Volume 89.6 fL (78.0-98.0); Mean Platelet Volume 7.8 fL (7.4-10.4); Monocytes 6 % (0-10); Myelocyte 1 % (0-0); Neutrophil 66 % (42-75); Platelet Count 771 thou/uL (130-400); Platelet Morphology Comment Appears Increased; RBC Distribution Width 13.2 % (11.5-14.5); RBC Morphology Normal; Reactive Lymphocytes 9 % (0-10); Red Blood Cell (RBC) Count 3.49 mill/uL (4.20-5.40); White Blood Cell (WBC) Count 23.3 thou/uL (4.8-10.8)
[2021-02-04] MEDS: Morphine 4 MG/ML VIAL SLOW IVP PRN ×3 (06:20→23:55)
[2021-02-04] MEDS ORDERED: PHOS-NAK 1 PKT PACK PO SCH (07:45)
[2021-02-04] MEDS: Pantoprazole 40 MG VIAL IVP SCH (08:57)
[2021-02-04] MEDS: levETIRAcetam in NS 500 MG in Premix Bag 1 BAG IVPB SCH ×2 (08:57→20:16)
[2021-02-04] MEDS: Floranex 1 GM Packet PER TUBE SCH (08:57)
[2021-02-04] MEDS: Amantadine HCl 100 mg Capsule PO SCH (08:59)
[2021-02-04] MEDS ORDERED: Acetaminophen 325 MG TAB ONE ×2 (20:04)
[2021-02-04] MEDS ORDERED: levETIRAcetam 500 MG/100 ML PREMIX BAG ONE ×2 (20:05→20:09)
[2021-02-05] MEDS: Albuterol 200 PUFF (6.7GM INHALER) INH SCH ×4 (01:42→18:02)
[2021-02-05] MEDS: Acetaminophen 650 MG/20.3 ML UDCUP PO SCH ×4 (02:27→21:10)
[2021-02-05 04:23] LABS: #Basophils 0.1 thou/uL (0.0-0.2); #Eosinphils 0.3 thou/uL (0.0-0.7); #Lymphocytes 2.6 thou/uL (1.20-3.40); #Monocytes 1.7 thou/uL (0.11-0.59); #Neutrophils 15.1 thou/uL (1.40-6.50); %Basophils 0.4 % (0.0-1.0); %Eosinophils 1.5 % (0.0-10.0); %Lymphocytes 12.9 % (21.0-51.0); %Monocytes 8.8 % (0.0-10.0); %Neutrophils 76.4 % (42.0-75.0); Mean Corpuscular HGB CONC 33.5 g/dL (32.0-36.0); Mean Corpuscular Hemoglobin 30.1 pg (27.0-31.0); Mean Platelet Volume 7.7 fL (7.4-10.4); Platelet Count 780 thou/uL (130-400); RBC Distribution Width 13.2 % (11.5-14.5); Red Blood Cell (RBC) Count 3.32 mill/uL (4.20-5.40); White Blood Cell (WBC) Count 19.8 thou/uL (4.8-10.8)
[2021-02-05 05:20] LABS: Albumin 3.3 g/dL (3.5-5.0)
[2021-02-05 05:22] LABS: Calcium 8.5 mg/dL (7.8-10.44); Chloride 106 mmol/L (98-107); Sodium 138 mmol/L (136-145)
[2021-02-05 05:23] LABS: Globulin 3.5 g/dL (2.4-3.5); Glucose 107 mg/dL (70-105); Protein, Total 6.8 g/dL (6.0-8.3)
[2021-02-05 05:24] LABS: Carbon Dioxide 23 mmol/L (22-29)
[2021-02-05 05:25] LABS: Bilirubin, Total 0.7 mg/dL (0.2-1.2)
[2021-02-05 05:26] LABS: Alkaline Phosphatase 221 U/L (40-110); Calc. Creatinine Clearance 209 mL/min (70-130); Phosphorus 2.9 mg/dL (2.3-4.7)
[2021-02-05 05:27] LABS: BUN (Urea Nitrogen) 18 mg/dL (7.0-18.7)
[2021-02-05 05:28] LABS: AST (SGOT) 80 U/L (5-34)
[2021-02-05 05:29] LABS: ALT (SGPT) 129 U/L (8-55); Magnesium 2.2 mg/dL (1.6-2.6)
[2021-02-05 05:32] LABS: Anion Gap 14 mmol/L (10-20)
[2021-02-05] MEDS ORDERED: Sodium Phosphate 30 MMOL in Sodium Chloride 0.9% 250 ML 250 ML IVPB SCH (07:45)
[2021-02-05] MEDS: Cefepime 2 GM in Sodium Chloride 0.9% 100 ML IVPB SCH ×2 (08:48→17:22)
[2021-02-05] MEDS: levETIRAcetam in NS 500 MG in Premix Bag 1 BAG IVPB SCH ×2 (08:48→21:10)
[2021-02-05] MEDS: Pantoprazole 40 MG VIAL IVP SCH (08:49)
[2021-02-05] MEDS: Floranex 1 GM Packet PER TUBE SCH (08:49)
[2021-02-05] MEDS: Amantadine HCl 100 mg Capsule PO SCH (08:52)
[2021-02-05] MEDS: Scopolamine 1.5 mg/72 hour Patch TD SCH (12:49)
[2021-02-06] MEDS: Cefepime 2 GM in Sodium Chloride 0.9% 100 ML IVPB SCH ×3 (01:20→15:52)
[2021-02-06] MEDS: Albuterol 200 PUFF (6.7GM INHALER) INH SCH ×4 (01:49→18:33)
[2021-02-06] MEDS: Acetaminophen 650 MG/20.3 ML UDCUP PO SCH ×4 (03:58→21:07)
[2021-02-06 04:38] LABS: Anion Gap 13 mmol/L (10-20); BUN (Urea Nitrogen) 14 mg/dL (7.0-18.7); Calc. Creatinine Clearance 205 mL/min (70-130); Calcium 8.6 mg/dL (7.8-10.44); Carbon Dioxide 23 mmol/L (22-29); Chloride 107 mmol/L (98-107); Glucose 119 mg/dL (70-105); Magnesium 2.2 mg/dL (1.6-2.6); Phosphorus 2.7 mg/dL (2.3-4.7); Potassium 4.2 mmol/L (3.5-5.1); Sodium 139 mmol/L (136-145)
[2021-02-06 05:09] LABS: #Basophils 0.1 thou/uL (0.0-0.2); #Eosinphils 0.3 thou/uL (0.0-0.7); #Neutrophils 9.4 thou/uL (1.40-6.50); %Basophils 0.6 % (0.0-1.0); %Lymphocytes 15.9 % (21.0-51.0); %Neutrophils 73.5 % (42.0-75.0); Hemoglobin 9.2 g/dL (12.0-16.0); Mean Corpuscular HGB CONC 32.2 g/dL (32.0-36.0); Mean Corpuscular Hemoglobin 29.1 pg (27.0-31.0); Mean Corpuscular Volume 90.4 fL (78.0-98.0); Mean Platelet Volume 8.2 fL (7.4-10.4); Platelet Count 761 thou/uL (130-400); RBC Distribution Width 13.2 % (11.5-14.5); Red Blood Cell (RBC) Count 3.18 mill/uL (4.20-5.40); White Blood Cell (WBC) Count 12.7 thou/uL (4.8-10.8)
[2021-02-06] MEDS: Morphine 4 MG/ML VIAL SLOW IVP PRN (06:04)
[2021-02-06] MEDS ORDERED: Sodium Phosphate 30 MMOL in Sodium Chloride 0.9% 250 ML 250 ML IVPB SCH (07:30)
[2021-02-06] MEDS: Pantoprazole 40 MG VIAL IVP SCH (09:24)
[2021-02-06] MEDS: Amantadine HCl 100 mg Capsule PO SCH (09:24)
[2021-02-06] MEDS: Floranex 1 GM Packet PER TUBE SCH (09:24)
[2021-02-06] MEDS: levETIRAcetam in NS 500 MG in Premix Bag 1 BAG IVPB SCH ×2 (09:25→21:08)
[2021-02-07] MEDS: Cefepime 2 GM in Sodium Chloride 0.9% 100 ML IVPB SCH ×3 (00:32→16:48)
[2021-02-07] MEDS: Albuterol 200 PUFF (6.7GM INHALER) INH SCH ×4 (01:09→18:28)
[2021-02-07] MEDS: Acetaminophen 650 MG/20.3 ML UDCUP PO SCH ×4 (02:59→20:59)
[2021-02-07 06:41] LABS: Hemoglobin 10.9 g/dL (12.0-16.0); Mean Corpuscular Hemoglobin 29.4 pg (27.0-31.0); Mean Corpuscular Volume 89.1 fL (78.0-98.0); Mean Platelet Volume 7.8 fL (7.4-10.4); Platelet Count 797 thou/uL (130-400); RBC Distribution Width 13.2 % (11.5-14.5); Red Blood Cell (RBC) Count 3.69 mill/uL (4.20-5.40); White Blood Cell (WBC) Count 11.5 thou/uL (4.8-10.8)
[2021-02-07] MEDS: levETIRAcetam in NS 500 MG in Premix Bag 1 BAG IVPB SCH ×2 (09:06→20:48)
[2021-02-07] MEDS: Floranex 1 GM Packet PER TUBE SCH (09:07)
[2021-02-07] MEDS: Amantadine HCl 100 mg Capsule PO SCH (09:07)
[2021-02-07] MEDS: Metamucil PACK PER TUBE SCH (09:07)
[2021-02-07] MEDS: Famotidine 20 MG TAB PO SCH ×2 (09:07→21:43)
[2021-02-07 09:56] LABS: Band 5 % (5-11); Eosinophils 1 % (0-10); Lymphocytes 25 % (21-51); MDiff Complete? YES; Monocytes 10 % (0-10); Neutrophil 59 % (42-75); Platelet Morphology Comment Appears Increased; Polychromasia SLIGHT = 2-3 cells (100X) (0-2/hpf)
[2021-02-08] MEDS: Albuterol 200 PUFF (6.7GM INHALER) INH SCH ×4 (01:30→18:50)
[2021-02-08] MEDS: Cefepime 2 GM in Sodium Chloride 0.9% 100 ML IVPB SCH ×4 (02:28→23:54)
[2021-02-08] MEDS: Acetaminophen 650 MG/20.3 ML UDCUP PO SCH ×4 (02:28→20:41)
[2021-02-08 04:53] LABS: #Basophils 0.1 thou/uL (0.0-0.2); #Eosinphils 0.5 thou/uL (0.0-0.7); #Lymphocytes 2.4 thou/uL (1.20-3.40); #Neutrophils 7.1 thou/uL (1.40-6.50); %Basophils 1.2 % (0.0-1.0); %Eosinophils 4.5 % (0.0-10.0); %Lymphocytes 21.5 % (21.0-51.0); %Monocytes 9.1 % (0.0-10.0); %Neutrophils 63.6 % (42.0-75.0); Hemoglobin 10.5 g/dL (12.0-16.0); Mean Corpuscular HGB CONC 33.2 g/dL (32.0-36.0); Mean Corpuscular Hemoglobin 29.4 pg (27.0-31.0); Mean Corpuscular Volume 88.6 fL (78.0-98.0); Mean Platelet Volume 7.7 fL (7.4-10.4); Platelet Count 738 thou/uL (130-400); RBC Distribution Width 13.4 % (11.5-14.5); Red Blood Cell (RBC) Count 3.57 mill/uL (4.20-5.40); White Blood Cell (WBC) Count 11.2 thou/uL (4.8-10.8)
[2021-02-08] MEDS: levETIRAcetam in NS 500 MG in Premix Bag 1 BAG IVPB SCH ×2 (10:11→20:40)
[2021-02-08] MEDS: Scopolamine 1.5 mg/72 hour Patch TD SCH (10:12)
[2021-02-08] MEDS: Metamucil PACK PER TUBE SCH (10:14)
[2021-02-08] MEDS: Floranex 1 GM Packet PER TUBE SCH (10:15)
[2021-02-08] MEDS: Famotidine 20 MG TAB PO SCH ×2 (10:15→20:41)
[2021-02-08] MEDS: Amantadine HCl 100 mg Capsule PO SCH (10:15)
[2021-02-09] MEDS: Albuterol 200 PUFF (6.7GM INHALER) INH SCH ×4 (01:58→19:20)
[2021-02-09] MEDS: Acetaminophen 650 MG/20.3 ML UDCUP PO SCH ×4 (03:41→20:58)
[2021-02-09] MEDS: Cefepime 2 GM in Sodium Chloride 0.9% 100 ML IVPB SCH ×3 (09:32→23:57)
[2021-02-09] MEDS: Amantadine HCl 100 mg Capsule PO SCH (09:32)
[2021-02-09] MEDS: Metamucil PACK PER TUBE SCH (09:33)
[2021-02-09] MEDS: Famotidine 20 MG TAB PO SCH ×2 (09:33→20:58)
[2021-02-09] MEDS: Floranex 1 GM Packet PER TUBE SCH (09:33)
[2021-02-09] MEDS: levETIRAcetam in NS 500 MG in Premix Bag 1 BAG IVPB SCH ×2 (09:35→20:59)
[2021-02-09] MEDS: Morphine 4 MG/ML VIAL SLOW IVP PRN (18:52)
[2021-02-10] MEDS: Albuterol 200 PUFF (6.7GM INHALER) INH SCH ×4 (02:25→18:55)
[2021-02-10] MEDS: Acetaminophen 650 MG/20.3 ML UDCUP PO SCH ×4 (02:56→21:26)
[2021-02-10 05:44] LABS: Hemoglobin 10.8 g/dL (12.0-16.0); Mean Corpuscular HGB CONC 33.6 g/dL (32.0-36.0); Mean Corpuscular Hemoglobin 29.9 pg (27.0-31.0); Platelet Count 561 thou/uL (130-400); RBC Distribution Width 14.3 % (11.5-14.5); White Blood Cell (WBC) Count 11.7 thou/uL (4.8-10.8)
[2021-02-10 06:10] LABS: Band 6 % (5-11); Eosinophils 10 % (0-10); Lymphocytes 14 % (21-51); MDiff Complete? YES; Monocytes 4 % (0-10); Neutrophil 66 % (42-75)
[2021-02-10] MEDS: levETIRAcetam in NS 500 MG in Premix Bag 1 BAG IVPB SCH ×2 (07:47→21:32)
[2021-02-10] MEDS: Famotidine 20 MG TAB PO SCH ×2 (07:48→21:36)
[2021-02-10] MEDS: Metamucil PACK PER TUBE SCH (07:48)
[2021-02-10] MEDS: Amantadine HCl 100 mg Capsule PO SCH (07:48)
[2021-02-10] MEDS: Floranex 1 GM Packet PER TUBE SCH (09:25)
[2021-02-10] MEDS: Cefepime 2 GM in Sodium Chloride 0.9% 100 ML IVPB SCH ×3 (09:25→23:33)
[2021-02-10] MEDS: Morphine 4 MG/ML VIAL SLOW IVP PRN ×2 (12:49→21:33)
[2021-02-11] MEDS: Albuterol 200 PUFF (6.7GM INHALER) INH SCH ×4 (01:41→18:16)
[2021-02-11] MEDS: Acetaminophen 650 MG/20.3 ML UDCUP PO SCH ×3 (03:59→16:17)
[2021-02-11] MEDS: Cefepime 2 GM in Sodium Chloride 0.9% 100 ML IVPB SCH ×2 (09:01→16:17)
[2021-02-11] MEDS: Famotidine 20 MG TAB PO SCH ×2 (09:04→20:44)
[2021-02-11] MEDS: Metamucil PACK PER TUBE SCH (09:04)
[2021-02-11] MEDS: Floranex 1 GM Packet PER TUBE SCH (09:04)
[2021-02-11] MEDS: Amantadine HCl 100 mg Capsule PO SCH (09:04)
[2021-02-11] MEDS: levETIRAcetam in NS 500 MG in Premix Bag 1 BAG IVPB SCH ×2 (09:38→20:44)
[2021-02-11] MEDS: Scopolamine 1.5 mg/72 hour Patch TD SCH (11:18)
[2021-02-11] MEDS: Morphine 4 MG/ML VIAL SLOW IVP PRN (18:31)
[2021-02-11] MEDS: Acetaminophen 325 MG/10.15 ML UDCUP PO SCH (20:45)
[2021-02-12] MEDS: Albuterol 200 PUFF (6.7GM INHALER) INH SCH ×4 (00:07→18:13)
[2021-02-12] MEDS: Cefepime 2 GM in Sodium Chloride 0.9% 100 ML IVPB SCH ×4 (00:49→23:43)
[2021-02-12] MEDS: Acetaminophen 325 MG/10.15 ML UDCUP PO SCH ×4 (03:30→21:29)
[2021-02-12] MEDS: Morphine 4 MG/ML VIAL SLOW IVP PRN (04:08)
[2021-02-12] MEDS: levETIRAcetam in NS 500 MG in Premix Bag 1 BAG IVPB SCH ×2 (09:24→21:29)
[2021-02-12] MEDS: Amantadine HCl 100 mg Capsule PO SCH (09:25)
[2021-02-12] MEDS: Floranex 1 GM Packet PER TUBE SCH (09:25)
[2021-02-12] MEDS: Metamucil PACK PER TUBE SCH (09:25)
[2021-02-12] MEDS: Enoxaparin Sodium 40 MG/0.4 ML SYRINGE SC SCH (09:26)
[2021-02-12] MEDS: Famotidine 20 MG TAB PO SCH ×2 (09:26→21:29)
[2021-02-13] MEDS: Morphine 4 MG/ML VIAL SLOW IVP PRN (00:10)
[2021-02-13] MEDS: Albuterol 200 PUFF (6.7GM INHALER) INH SCH ×4 (01:09→18:13)
[2021-02-13] MEDS: Acetaminophen 325 MG/10.15 ML UDCUP PO SCH ×4 (04:05→21:56)
[2021-02-13] MEDS: Amantadine HCl 100 mg Capsule PO SCH (09:18)
[2021-02-13] MEDS: Cefepime 2 GM in Sodium Chloride 0.9% 100 ML IVPB SCH ×2 (09:18→16:06)
[2021-02-13] MEDS: Metamucil PACK PER TUBE SCH (09:18)
[2021-02-13] MEDS: Enoxaparin Sodium 40 MG/0.4 ML SYRINGE SC SCH (09:19)
[2021-02-13] MEDS: Famotidine 20 MG TAB PO SCH ×2 (09:19→21:54)
[2021-02-13] MEDS: Floranex 1 GM Packet PER TUBE SCH (09:19)
[2021-02-13] MEDS: levETIRAcetam in NS 500 MG in Premix Bag 1 BAG IVPB SCH ×2 (10:15→21:54)
[2021-02-14] MEDS: Albuterol 200 PUFF (6.7GM INHALER) INH SCH ×5 (00:17→23:44)
[2021-02-14] MEDS: Cefepime 2 GM in Sodium Chloride 0.9% 100 ML IVPB SCH ×3 (01:00→16:00)
[2021-02-14] MEDS: Morphine 4 MG/ML VIAL SLOW IVP PRN (01:04)
[2021-02-14] MEDS: Acetaminophen 325 MG/10.15 ML UDCUP PO SCH ×4 (03:35→21:08)
[2021-02-14] MEDS: Metamucil PACK PER TUBE SCH (09:15)
[2021-02-14] MEDS: Enoxaparin Sodium 40 MG/0.4 ML SYRINGE SC SCH (09:15)
[2021-02-14] MEDS: Famotidine 20 MG TAB PO SCH ×2 (09:15→21:08)
[2021-02-14] MEDS: Floranex 1 GM Packet PER TUBE SCH (09:16)
[2021-02-14] MEDS: Amantadine HCl 100 mg Capsule PO SCH (09:16)
[2021-02-14] MEDS: levETIRAcetam in NS 500 MG in Premix Bag 1 BAG IVPB SCH ×2 (10:00→21:09)
[2021-02-14] MEDS: Scopolamine 1.5 mg/72 hour Patch TD SCH (15:58)
[2021-02-15] MEDS: Cefepime 2 GM in Sodium Chloride 0.9% 100 ML IVPB SCH (00:29)
[2021-02-15] MEDS: Acetaminophen 325 MG/10.15 ML UDCUP PO SCH ×2 (02:29→09:53)
[2021-02-15] MEDS: Albuterol 200 PUFF (6.7GM INHALER) INH SCH ×3 (06:35→18:00)
[2021-02-15] MEDS: Amantadine HCl 100 mg Capsule PO SCH (08:38)
[2021-02-15] MEDS: Floranex 1 GM Packet PER TUBE SCH (08:39)
[2021-02-15] MEDS: Famotidine 20 MG TAB PO SCH ×2 (08:39→20:51)
[2021-02-15] MEDS: Enoxaparin Sodium 40 MG/0.4 ML SYRINGE SC SCH (08:39)
[2021-02-15] MEDS: Metamucil PACK PER TUBE SCH (09:53)
[2021-02-15] MEDS: levETIRAcetam in NS 500 MG in Premix Bag 1 BAG IVPB SCH ×2 (09:54→21:45)
[2021-02-15] MEDS: Acetaminophen 650 MG/20.3 ML UDCUP PO SCH ×2 (15:03→20:51)
[2021-02-15] MEDS: Acetaminophen/Codeine 30-300mg Tablet PO PRN (20:51)
[2021-02-15] MEDS ORDERED: levETIRAcetam 500 MG/100 ML PREMIX BAG ONE (21:55)
[2021-02-16] MEDS: Albuterol 200 PUFF (6.7GM INHALER) INH SCH ×4 (00:34→19:05)
[2021-02-16] MEDS: Acetaminophen 650 MG/20.3 ML UDCUP PO SCH ×4 (03:34→22:20)
[2021-02-16] MEDS: Amantadine HCl 100 mg Capsule PO SCH (08:31)
[2021-02-16] MEDS: Famotidine 20 MG TAB PO SCH ×2 (08:31→22:20)
[2021-02-16] MEDS: Floranex 1 GM Packet PER TUBE SCH (08:31)
[2021-02-16] MEDS: Enoxaparin Sodium 40 MG/0.4 ML SYRINGE SC SCH (08:31)
[2021-02-16] MEDS: levETIRAcetam in NS 500 MG in Premix Bag 1 BAG IVPB SCH ×2 (08:33→22:21)
[2021-02-16] MEDS: Metamucil PACK PER TUBE SCH (08:33)
[2021-02-16] MEDS: Acetaminophen/Codeine 30-300mg Tablet PO PRN (22:19)
[2021-02-17] MEDS: Albuterol 200 PUFF (6.7GM INHALER) INH SCH ×4 (01:05→18:50)
[2021-02-17] MEDS: Acetaminophen 650 MG/20.3 ML UDCUP PO SCH ×4 (04:24→20:34)
[2021-02-17] MEDS: levETIRAcetam in NS 500 MG in Premix Bag 1 BAG IVPB SCH ×2 (08:05→20:35)
[2021-02-17] MEDS: Famotidine 20 MG TAB PO SCH ×2 (08:06→20:35)
[2021-02-17] MEDS: Enoxaparin Sodium 40 MG/0.4 ML SYRINGE SC SCH (08:06)
[2021-02-17] MEDS: Amantadine HCl 100 mg Capsule PO SCH (08:06)
[2021-02-17] MEDS: Floranex 1 GM Packet PER TUBE SCH (08:11)
[2021-02-17] MEDS: Metamucil PACK PER TUBE SCH (10:00)
[2021-02-17] MEDS: Scopolamine 1.5 mg/72 hour Patch TD SCH (10:24)
[2021-02-18] MEDS: Albuterol 200 PUFF (6.7GM INHALER) INH SCH ×4 (01:36→18:39)
[2021-02-18] MEDS: Acetaminophen 650 MG/20.3 ML UDCUP PO SCH ×4 (02:24→21:10)
[2021-02-18] MEDS: Metamucil PACK PER TUBE SCH (10:09)
[2021-02-18] MEDS: Amantadine HCl 100 mg Capsule PO SCH (10:09)
[2021-02-18] MEDS: Famotidine 20 MG TAB PO SCH ×2 (10:10→21:11)
[2021-02-18] MEDS: Enoxaparin Sodium 40 MG/0.4 ML SYRINGE SC SCH (10:10)
[2021-02-18] MEDS: levETIRAcetam in NS 500 MG in Premix Bag 1 BAG IVPB SCH ×2 (11:06→21:11)
[2021-02-18] MEDS: Floranex 1 GM Packet PER TUBE SCH (17:22)
[2021-02-19] MEDS: Albuterol 200 PUFF (6.7GM INHALER) INH SCH ×4 (00:49→18:44)
[2021-02-19] MEDS: Acetaminophen 650 MG/20.3 ML UDCUP PO SCH ×4 (03:35→21:00)
[2021-02-19] MEDS: Metamucil PACK PER TUBE SCH (08:53)
[2021-02-19] MEDS: Enoxaparin Sodium 40 MG/0.4 ML SYRINGE SC SCH (08:54)
[2021-02-19] MEDS: Floranex 1 GM Packet PER TUBE SCH (08:54)
[2021-02-19] MEDS: Famotidine 20 MG TAB PO SCH ×2 (08:54→21:00)
[2021-02-19] MEDS: Amantadine HCl 100 mg Capsule PO SCH (08:54)
[2021-02-19] MEDS: levETIRAcetam 500 MG TAB PO SCH ×2 (08:57→21:00)
[2021-02-20] MEDS: Albuterol 200 PUFF (6.7GM INHALER) INH SCH ×2 (00:15→06:57)
[2021-02-20] MEDS: Acetaminophen 650 MG/20.3 ML UDCUP PO SCH ×4 (03:28→20:54)
[2021-02-20] MEDS ORDERED: Albuterol 200 PUFF (6.7GM INHALER) INH PRN (08:08)
[2021-02-20] MEDS: Enoxaparin Sodium 40 MG/0.4 ML SYRINGE SC SCH (09:15)
[2021-02-20] MEDS: Amantadine HCl 100 mg Capsule PO SCH (09:16)
[2021-02-20] MEDS: levETIRAcetam 500 MG TAB PO SCH ×2 (09:16→20:54)
[2021-02-20] MEDS: Famotidine 20 MG TAB PO SCH ×2 (09:17→20:54)
[2021-02-20] MEDS: Metamucil PACK PER TUBE SCH (11:27)
[2021-02-20] MEDS: Floranex 1 GM Packet PER TUBE SCH (11:27)
[2021-02-20] MEDS: Scopolamine 1.5 mg/72 hour Patch TD SCH (12:35)
[2021-02-21] MEDS: Acetaminophen 650 MG/20.3 ML UDCUP PO SCH ×4 (03:52→20:20)
[2021-02-21] MEDS: Famotidine 20 MG TAB PO SCH ×2 (10:21→20:21)
[2021-02-21] MEDS: levETIRAcetam 500 MG TAB PO SCH ×2 (10:21→20:21)
[2021-02-21] MEDS: Enoxaparin Sodium 40 MG/0.4 ML SYRINGE SC SCH (10:23)
[2021-02-21] MEDS: Amantadine HCl 100 mg Capsule PO SCH (10:54)
[2021-02-21] MEDS: Metamucil PACK PER TUBE SCH (10:55)
[2021-02-21] MEDS: Floranex 1 GM Packet PER TUBE SCH (10:55)
[2021-02-22] MEDS: Acetaminophen 650 MG/20.3 ML UDCUP PO SCH ×4 (04:05→20:52)
[2021-02-22] MEDS: levETIRAcetam 500 MG TAB PO SCH ×2 (08:54→20:53)
[2021-02-22] MEDS: Famotidine 20 MG TAB PO SCH ×2 (08:54→20:52)
[2021-02-22] MEDS: Floranex 1 GM Packet PER TUBE SCH (08:54)
[2021-02-22] MEDS: Amantadine HCl 100 mg Capsule PO SCH (08:54)
[2021-02-22] MEDS: Enoxaparin Sodium 40 MG/0.4 ML SYRINGE SC SCH (08:54)
[2021-02-22] MEDS: Metamucil PACK PER TUBE SCH (10:11)
[2021-02-23] MEDS: Acetaminophen/Codeine 30-300mg Tablet PO PRN (00:03)
[2021-02-23] MEDS: Acetaminophen 650 MG/20.3 ML UDCUP PO SCH ×4 (03:24→20:58)
[2021-02-23] MEDS: Amantadine HCl 100 mg Capsule PO SCH (09:07)
[2021-02-23] MEDS: Floranex 1 GM Packet PER TUBE SCH (09:07)
[2021-02-23] MEDS: Famotidine 20 MG TAB PO SCH ×2 (09:07→20:55)
[2021-02-23] MEDS: levETIRAcetam 500 MG TAB PO SCH ×2 (09:07→20:55)
[2021-02-23] MEDS: Enoxaparin Sodium 40 MG/0.4 ML SYRINGE SC SCH (09:08)
[2021-02-23 09:21] VITALS: BMI 24.9
[2021-02-23] MEDS: Metamucil PACK PER TUBE SCH (09:50)
[2021-02-24] MEDS: Acetaminophen 650 MG/20.3 ML UDCUP PO SCH ×4 (03:40→20:26)
[2021-02-24] MEDS: Floranex 1 GM Packet PER TUBE SCH (09:12)
[2021-02-24] MEDS: Famotidine 20 MG TAB PO SCH ×2 (09:12→20:26)
[2021-02-24] MEDS: Amantadine HCl 100 mg Capsule PO SCH (09:12)
[2021-02-24] MEDS: Enoxaparin Sodium 40 MG/0.4 ML SYRINGE SC SCH (09:13)
[2021-02-24] MEDS: Metamucil PACK PER TUBE SCH (09:13)
[2021-02-24] MEDS: levETIRAcetam 500 MG TAB PO SCH ×2 (09:13→20:23)
[2021-02-24] MEDS: Acetaminophen/Codeine 30-300mg Tablet PO PRN (20:23)
[2021-02-25] MEDS: Acetaminophen 650 MG/20.3 ML UDCUP PO SCH ×2 (03:23→08:33)
[2021-02-25] MEDS: Famotidine 20 MG TAB PO SCH (08:32)
[2021-02-25] MEDS: Amantadine HCl 100 mg Capsule PO SCH (08:32)
[2021-02-25] MEDS: Floranex 1 GM Packet PER TUBE SCH (08:33)
[2021-02-25] MEDS: levETIRAcetam 500 MG TAB PO SCH ×2 (08:33→22:03)
[2021-02-25] MEDS: Enoxaparin Sodium 40 MG/0.4 ML SYRINGE SC SCH (08:33)
[2021-02-25] MEDS: Metamucil PACK PER TUBE SCH (08:33)
[2021-02-25] MEDS: Acetaminophen 650 MG/20.3 ML UDCUP PO PRN (22:03)
[2021-02-26] MEDS: Metamucil PACK PER TUBE SCH (08:53)
[2021-02-26] MEDS: levETIRAcetam 500 MG TAB PO SCH ×2 (08:53→20:08)
[2021-02-26] MEDS: Amantadine HCl 100 mg Capsule PO SCH (08:53)
[2021-02-26] MEDS: Enoxaparin Sodium 40 MG/0.4 ML SYRINGE SC SCH (08:53)
[2021-02-26] MEDS: Floranex 1 GM Packet PER TUBE SCH (08:54)
[2021-02-27] MEDS: Metamucil PACK PER TUBE SCH (08:10)
[2021-02-27] MEDS: levETIRAcetam 500 MG TAB PO SCH ×2 (08:10→20:13)
[2021-02-27] MEDS: Enoxaparin Sodium 40 MG/0.4 ML SYRINGE SC SCH (08:10)
[2021-02-27] MEDS: Amantadine HCl 100 mg Capsule PO SCH (08:10)
[2021-02-27] MEDS: Floranex 1 GM Packet PER TUBE SCH (11:23)
[2021-02-28] MEDS: Enoxaparin Sodium 40 MG/0.4 ML SYRINGE SC SCH (08:46)
[2021-02-28] MEDS: Amantadine HCl 100 mg Capsule PO SCH (08:46)
[2021-02-28] MEDS: levETIRAcetam 500 MG TAB PO SCH ×2 (08:46→20:25)
[2021-02-28] MEDS: Metamucil PACK PER TUBE SCH (08:46)
[2021-03-01] MEDS: Polyethylene Glycol 3350 17 GM Packet PO SCH ×2 (07:23→08:09)
[2021-03-01] MEDS: Floranex 1 GM Packet PER TUBE SCH ×2 (07:23→08:08)
[2021-03-01] MEDS: Amantadine HCl 100 mg Capsule PO SCH (08:08)
[2021-03-01] MEDS: Enoxaparin Sodium 40 MG/0.4 ML SYRINGE SC SCH (08:08)
[2021-03-01] MEDS: levETIRAcetam 500 MG TAB PO SCH ×2 (08:08→20:14)
[2021-03-02] MEDS: Amantadine HCl 100 mg Capsule PO SCH (09:18)
[2021-03-02] MEDS: Enoxaparin Sodium 40 MG/0.4 ML SYRINGE SC SCH (09:18)
[2021-03-02] MEDS: Polyethylene Glycol 3350 17 GM Packet PO SCH (09:18)
[2021-03-02] MEDS: levETIRAcetam 500 MG TAB PO SCH ×2 (09:19→20:37)
[2021-03-02] MEDS: Floranex 1 GM Packet PER TUBE SCH (09:19)
[2021-03-02] MEDS: Acetaminophen 650 MG/20.3 ML UDCUP PO PRN (20:44)
[2021-03-03] MEDS: Enoxaparin Sodium 40 MG/0.4 ML SYRINGE SC SCH (08:34)
[2021-03-03] MEDS: Amantadine HCl 100 mg Capsule PO SCH (08:34)
[2021-03-03] MEDS: levETIRAcetam 500 MG TAB PO SCH ×2 (08:34→20:28)
[2021-03-03] MEDS: Floranex 1 GM Packet PER TUBE SCH (08:34)
[2021-03-03] MEDS: Polyethylene Glycol 3350 17 GM Packet PO SCH (08:35)
[2021-03-03] MEDS: Acetaminophen/Codeine 30-300mg Tablet PO PRN (13:22)
[2021-03-04] MEDS: Floranex 1 GM Packet PER TUBE SCH (08:19)
[2021-03-04] MEDS: Enoxaparin Sodium 40 MG/0.4 ML SYRINGE SC SCH (08:19)
[2021-03-04] MEDS: levETIRAcetam 500 MG TAB PO SCH ×2 (08:20→20:20)
[2021-03-04] MEDS: Amantadine HCl 100 mg Capsule PO SCH (08:20)
[2021-03-04] MEDS: Polyethylene Glycol 3350 17 GM Packet PO SCH (08:20)
[2021-03-04] MEDS ORDERED: levETIRAcetam 500 MG TAB ONE (20:09)
[2021-03-05] MEDS: Amantadine HCl 100 mg Capsule PO SCH (08:55)
[2021-03-05] MEDS: levETIRAcetam 500 MG TAB PO SCH ×2 (08:55→21:22)
[2021-03-05] MEDS: Polyethylene Glycol 3350 17 GM Packet PO SCH (08:55)
[2021-03-05] MEDS: Floranex 1 GM Packet PER TUBE SCH (08:55)
[2021-03-05] MEDS: Enoxaparin Sodium 40 MG/0.4 ML SYRINGE SC SCH (08:55)
[2021-03-06] MEDS: Polyethylene Glycol 3350 17 GM Packet PO SCH (09:20)
[2021-03-06] MEDS: Enoxaparin Sodium 40 MG/0.4 ML SYRINGE SC SCH (09:20)
[2021-03-06] MEDS: Floranex 1 GM Packet PER TUBE SCH (09:20)
[2021-03-06] MEDS: levETIRAcetam 500 MG TAB PO SCH (09:20)
[2021-03-06 11:40] VITALS: TEMP 98.2
[2021-03-06 15:26] VITALS: BP 102/71
== END 2021-03-06 18:00 | disposition home or self-care (01) | DRG 3 ==
LOC: ERS 04:25 → EDBD 04:25 → CCU 05:20 → EEVIPCON 05:20 → IMCU/EMU 02-05 12:27 → SJJU 02-06 15:34 → SURG A 02-25 22:40
PROVIDERS: ADMIT Specialist; ATTEND Surgery
PROC: 5A1955Z Respiratory Ventilation, Greater than 96 Consecutive Hours (ICD-10-PCS; principal; 2021-01-17)
PROC: 00H032Z Insertion of Monitoring Device into Brain, Percutaneous Approach (ICD-10-PCS; 2021-01-17)
PROC: 4A103BD Monitoring of Intracranial Pressure, Percutaneous Approach (ICD-10-PCS; 2021-01-17)
PROC: 0HQ0XZZ Repair Scalp Skin, External Approach (ICD-10-PCS; 2021-01-17)
PROC: 8E0ZXY6 Isolation (ICD-10-PCS; 2021-01-17)
PROC: 0BH17EZ Insertion of Endotracheal Airway into Trachea, Via Natural or Artificial Opening (ICD-10-PCS; 2021-01-17)
PROC: 30233N1 Transfusion of Nonautologous Red Blood Cells into Peripheral Vein, Percutaneous Approach (ICD-10-PCS; 2021-01-18)
PROC: 3E043XZ Introduction of Vasopressor into Central Vein, Percutaneous Approach (ICD-10-PCS; 2021-01-18)
PROC: 0B9G8ZX Drainage of Left Upper Lung Lobe, Via Natural or Artificial Opening Endoscopic, Diagnostic (ICD-10-PCS; 2021-01-22)
PROC: 0B9F8ZX Drainage of Right Lower Lung Lobe, Via Natural or Artificial Opening Endoscopic, Diagnostic (ICD-10-PCS; 2021-01-22)
PROC: 0B9J8ZZ Drainage of Left Lower Lung Lobe, Via Natural or Artificial Opening Endoscopic (ICD-10-PCS; 2021-01-22)
PROC: 0BCB8ZZ Extirpation of Matter from Left Lower Lobe Bronchus, Via Natural or Artificial Opening Endoscopic (ICD-10-PCS; 2021-01-22)
PROC: 0BC48ZZ Extirpation of Matter from Right Upper Lobe Bronchus, Via Natural or Artificial Opening Endoscopic (ICD-10-PCS; 2021-01-22)
PROC: 0BC88ZZ Extirpation of Matter from Left Upper Lobe Bronchus, Via Natural or Artificial Opening Endoscopic (ICD-10-PCS; 2021-01-22)
PROC: 0BC68ZZ Extirpation of Matter from Right Lower Lobe Bronchus, Via Natural or Artificial Opening Endoscopic (ICD-10-PCS; 2021-01-22)
PROC: 3E0333Z Introduction of Anti-inflammatory into Peripheral Vein, Percutaneous Approach (ICD-10-PCS; 2021-01-27)
PROC: 0B113F4 Bypass Trachea to Cutaneous with Tracheostomy Device, Percutaneous Approach (ICD-10-PCS; 2021-01-28)
PROC: 0DH63UZ Insertion of Feeding Device into Stomach, Percutaneous Approach (ICD-10-PCS; 2021-01-28)
PROC: 3E0G76Z Introduction of Nutritional Substance into Upper GI, Via Natural or Artificial Opening (ICD-10-PCS; 2021-02-20)
DX: S06.6X9A Traumatic subarachnoid hemorrhage with loss of consciousness of unspecified duration, initial encounter (principal); U07.1 COVID-19; J12.82 Pneumonia due to coronavirus disease 2019; J96.00 Acute respiratory failure, unspecified whether with hypoxia or hypercapnia; J15.1 Pneumonia due to Pseudomonas; J15.0 Pneumonia due to Klebsiella pneumoniae; J69.0 Pneumonitis due to inhalation of food and vomit; E87.2 Acidosis; E87.0 Hyperosmolality and hypernatremia; D62 Acute posthemorrhagic anemia; E27.40 Unspecified adrenocortical insufficiency; N39.0 Urinary tract infection, site not specified; J95.851 Ventilator associated pneumonia; S02.0XXB Fracture of vault of skull, initial encounter for open fracture; S02.19XB Other fracture of base of skull, initial encounter for open fracture; S02.85XA Fracture of orbit, unspecified, initial encounter for closed fracture; S02.40FA Zygomatic fracture, left side, initial encounter for closed fracture; S02.40DA Maxillary fracture, left side, initial encounter for closed fracture; S06.1X9A Traumatic cerebral edema with loss of consciousness of unspecified duration, initial encounter; I65.22 Occlusion and stenosis of left carotid artery; R40.2342 Coma scale, best motor response, flexion withdrawal, at arrival to emergency department; R40.2122 Coma scale, eyes open, to pain, at arrival to emergency department; R40.2212 Coma scale, best verbal response, none, at arrival to emergency department; B96.89 Other specified bacterial agents as the cause of diseases classified elsewhere; D69.6 Thrombocytopenia, unspecified; R19.7 Diarrhea, unspecified; R56.9 Unspecified convulsions; E87.6 Hypokalemia; E83.42 Hypomagnesemia; E83.39 Other disorders of phosphorus metabolism; G93.2 Benign intracranial hypertension; Z78.1 Physical restraint status; Y08.02XA Assault by strike by baseball bat, initial encounter
CPT/HCPCS: 31500; 31624; 36415; 36416; 36430; 36600; 51702; 70450; 70486; 70496; 70498; 71045; 72125; 74230; 76377; 80048; 80053; 80076; 80202; 80307; 81003; 81025; 82533; 82805; 82947; 83036; 83605; 83735; 83930; 84100; 84146; 84478; 84703; 85007; 85025; 85027; 85610; 85730; 86850; 86900; 86901; 87040; 87070; 87077; 87086; 87186; 87205; 87324; 87449; 90471; 93005; 93010; 93970; 94003; 94640; 95712; 95819; 95957; 96365; 96374; 96375; 96376; C9113; G0390; J0690; J0692; J0696; J1100; J1642; J1650; J1720; J1940; J1953; J2060; J2150; J2185; J2250; J2270; J2704; J2765; J3010; J3370; J3475; J3480; J3490; J7030; J7050; J7120; J7131; J7799; P9016; P9045; Q9967; U0002